=== PATIENT | male | born 1930 | race Caucasian/White ===

== ENCOUNTER 2017-12-19 11:40 | Observation (INO) | payer MEDICARE ==
[2017-12-19 12:10] LABS: #Lymphocytes 0.6 thou/uL (1.20-3.40); #Monocytes 0.2 thou/uL (0.11-0.59); #Neutrophils 5.5 thou/uL (1.40-6.50); %Eosinophils 0.2 % (0.0-10.0); %Monocytes 3.7 % (0.0-10.0); Hemoglobin 12.2 g/dL (14.0-18.0); Mean Corpuscular HGB CONC 31.7 g/dL (32.0-36.0); Mean Corpuscular Hemoglobin 32.1 pg (27.0-31.0); Mean Platelet Volume 6.8 fL (7.4-10.4); Platelet Count 145 thou/uL (130-400); RBC Distribution Width 12.4 % (11.5-14.5); Red Blood Cell (RBC) Count 3.79 mill/uL (4.70-6.10); White Blood Cell (WBC) Count 6.3 thou/uL (4.8-10.8)
[2017-12-19 12:30] LABS: ALT (SGPT) 18 U/L (8-55); AST (SGOT) 25 U/L (5-34); Albumin 3.6 g/dL (3.4-4.8); Alkaline Phosphatase 54 U/L (40-150); Anion Gap 13 mmol/L (10-20); BUN (Urea Nitrogen) 32 mg/dL (8.4-25.7); Bilirubin, Total 0.5 mg/dL (0.2-1.2); CK (CPK) 158 U/L (30-200); Calc. Creatinine Clearance 0 mL/min (70-130); Calcium 9.3 mg/dL (7.8-10.44); Carbon Dioxide 24 mmol/L (23-31); Chloride 107 mmol/L (98-107); Estimated GFR-MDRD 57; Globulin 2.8 g/dL (2.4-3.5); Glucose 97 mg/dL (83-110); Potassium 3.7 mmol/L (3.5-5.1); Protein, Total 6.4 g/dL (5.8-8.1); Sodium 140 mmol/L (136-145)
[2017-12-19 12:45] LABS: CKMB 3.1 ng/mL (0-6.6); Troponin I 0.014 ng/mL (< 0.028)
--- NOTE | 2017-12-19 13:27 | RAD ---
TWO VIEWS LEFT FOREARM: HISTORY: Fall with left forearm pain. TECHNIQUE: AP and lateral views of the left forearm are obtained. FINDINGS: No evidence of left forearm fractures, subluxations, or bony lesions seen. IMPRESSION: Normal two views left forearm. POS: [facility]
--- NOTE | 2017-12-19 13:40 | CT ---
NONCONTRAST CT CERVICAL SPINE: 12/19/2017 HISTORY: Syncopal episode with collapse. Injury after fall to ground. Unknown if the patient hit head. Sinus bradycardia. TECHNIQUE: Contiguous axial CT images are obtained through the cervical spine, from the skull base to the T1-T2 level. Sagittal and coronal reformatted images are provided. FINDINGS: There are prominent degenerative changes and pannus formation at the articulation of the odontoid and anterior arch of the C1 vertebral body. No acute fracture is visualized. There is trace anterolist hesis of C4 on C5. However, there is fusion of the right-sided facet joints at this level. No additional level of subluxation is seen, and there is no evidence of a fracture involving the cerv ical spine. There is fusion of the right-sided facet joints at the C2-C3 level. Vertebral body heights are within normal limits. Scattered facet degenerative changes are present. There are varying degrees of moderate and severe neural foraminal narrowing throughout the cervical s pine, due to the prominent facet hypertrophic changes, with the greatest degrees of neural foraminal narrowing on the left at the C3-C4 level and on the right at the C4-C5 level, with severe neural fora hillary narrowing due to the bony encroachment on the neural foramina. There is a ligamentous calcific ation seen at the right posterolateral aspect of the central canal, at the C5-C6 level, which does no t result in significant mass effect on the thecal sac. The prevertebral soft tissues are within normal limits. Vascular calcifications are seen in the carotid arteries, as well as the vertebral arteries. The bairon g apices are clear. A 9 mm, hypodense nodule is seen in the left lobe of the thyroid gland. IMPRESSION: 1. Multilevel degenerative changes in the cervical spine, without evidence of a fracture. 2. Trace anterolisthesis of C4 on C5, but there is fusion of the right-sided facet joint at this lev el. 3. Subcentimeter, nonspecific, difficult to characterize, hypodense nodule left lobe of the thyroid g land. POS: [facility]
--- NOTE | 2017-12-19 13:53 | CT ---
CT BRAIN WITHOUT CONTRAST: HISTORY: Fall, syncope, probably injury to the head. FINDINGS: Comparison is made with the exam of 12/11/14. Changes of cortical atrophy and chronic small vessel disease are again seen. The ventricular size is stable and the basilar cisterns patent. No evidence of acute infarct, hemorrhage, midline shift, or abnormal extraaxial fluid collections is seen. Vascular calcifications are noted. The bony calvari um is intact. The visualized paranasal sinuses and mastoid air cells are well aerated. IMPRESSION: No CT evidence of acute intracranial process. POS: OFF
--- NOTE | 2017-12-19 16:01 | RAD ---
PA AND LATERAL VIEWS CHEST: HISTORY: Cough, syncope. FINDINGS: There are changes of median sternotomy. The heart size is normal. A moderate-size hiatal hernia is present. The lungs are expanded without focal areas of consolidation, pneumothorax, or pleural effus ions. There are degenerative changes seen in the spine. IMPRESSION: No radiographic evidence of acute cardiopulmonary process. POS: OFF
--- NOTE | 2017-12-19 16:04 | RAD ---
TWO VIEWS LEFT HIP: DATE: 12/19/17. HISTORY: Trauma left hip. The patient woke up on the floor of the living room today and unsure how he got the re. FINDINGS: There is no fracture or dislocation involving the left hip. Minimal osteoarthritis is present. Vasc ular calcifications are seen in the iliac and femoral arteries. Surgical clips overlie the medial as pect of each thigh. Multiple calcifications overlie the pelvis which have the appearance of phleboli ths. Mild degenerative change is seen in the lower lumbar spine. IMPRESSION: 1. Minimal osteoarthritis left hip. 2. No fracture or dislocation involving the left hip. 3. Vascular calcifications. POS: [facility]
[2017-12-19 17:52] LABS: Troponin I 0.031 ng/mL (< 0.028)
[2017-12-19] MEDS ORDERED: Ondansetron ODT 4 MG TAB SL PRN (19:51)
[2017-12-19] MEDS ORDERED: Ondansetron HCl/PF 4 MG/2 ML Vial IVP PRN (19:51)
[2017-12-19] MEDS ORDERED: Acetaminophen 325 MG TAB PO PRN (19:51)
[2017-12-19 20:54] LABS: Troponin I 0.039 ng/mL (< 0.028)
[2017-12-19 22:39] VITALS: BMI 23.6
[2017-12-20] MEDS ORDERED: Dextrose 5% in Water 1,000 ML IV PRN (01:34)
[2017-12-20] MEDS ORDERED: HumaLOG 300 UNITS/3 ML VIAL SC PRN (01:34)
[2017-12-20] MEDS ORDERED: Dextrose 50% Abboject 50 ML SYRINGE SLOW IVP PRN (01:34)
[2017-12-20 02:40] LABS: Troponin I 0.043 ng/mL (< 0.028)
--- NOTE | 2017-12-20 03:56 | HP ---
PRIMARY CARE PHYSICIAN: Lior Salas MD PRESENTING COMPLAINT: Found down. HISTORY OF PRESENT ILLNESS: Freddy Yan is an 87-year-old male with a past medical history of at rial fibrillation; insulin-dependent diabetes mellitus; CAD, status post CABG, who states that al r this morning he checked his blood sugar and was 89 after which he took about 17 units of sliding sc jaison insulin. He got dressed, then states he must have passed out because may found him on the floor. He later regained consciousness and EMS was called. He was found with his heart rates in the 40s a nd was given 0.5 mg of atropine. He is unsure if he hit his head, but denies chest pain, shortness o f breath, history of seizures or bowel/bladder incontinence. He has had a similar episode in 2014 wh ere he was found to be hypoglycemic and in atrial fibrillation that were both treated. When EMS arri shaheen today, his blood glucose was in the 80s. At the emergency room, he had a dysphagia screen, which showed possible aspiration. PAST MEDICAL HISTORY: TIA; CAD, status post CABG; atrial fibrillation; insulin-dependent diabetes me llitus. PAST SURGICAL HISTORY: Right knee replacement, CABG. FAMILY HISTORY: Reviewed, not contributory. SOCIAL HISTORY: Does not smoke cigarettes, drink alcohol, or use illicit drugs. ALLERGIES: ADHESIVES. CODE STATUS: DNR. REVIEW OF SYSTEMS: Constitutional: Negative. HEENT: Negative. Cardiovascular: Negative. Respir atory: Reports occasional cough. Gastrointestinal: Negative. Genitourinary: Negative. Musculosk eletal: Negative. Skin: Negative. Neurologic: Loss of consciousness. Endocrine: Negative. Hem atological/Lymphatic: Negative. Allergy/Immunology: Negative. Psychiatric: Negative. PHYSICAL EXAMINATION: VITAL SIGNS: Pulse 70, respiratory rate 20, oxygen saturation 93% on room air, blood pressure 126/64 . CONSTITUTIONAL: Not in acute distress. Lying comfortably in bed. HEENT: Normocephalic, atraumatic. Not pale, anicteric. EOMI. PERRLA. NECK: Supple. Full range of movements. RESPIRATORY: Vesicular breath sounds bilaterally. No wheezes or rales. CARDIOVASCULAR: Regular rate and rhythm. S1, S2 only. No murmurs, rubs, or gallops. MUSCULOSKELETAL: Full range of movement of all extremities. NEUROLOGIC: Alert and well oriented. No focal deficits. SKIN: Warm, dry, well-perfused. PSYCHIATRIC: Normal mood and affect. LABORATORY DATA: Chemistry was largely unremarkable. BNP was 281. Initial troponin was 0.014 and i ncreased to 0.031. CBC showed some macrocytic anemia, but mild. IMAGING: Brain CT showed no evidence of acute intracranial process. Cervical spine CT showed multil evel degenerative changes in the cervical spine without evidence of fracture. ASSESSMENT AND PLAN: 1. Syncope. This is likely due to hypoglycemia as he reports using 70 units of short-acting insulin after he checked his blood sugar, which was 89. For tonight, we will hold all insulin that is his s cheduled home regimen. Also, holds pioglitazone and sitagliptin. He will be placed on sliding scale insulin, diabetic diet. His glucose will be checked every 2 hours. He would likely need a review o f his home regimen before discharge. 2. Atrial fibrillation, currently rate controlled. In the field, he was found to be bradycardic and was given atropine. We will hold metformin and monitor on telemetry. 3. Insulin-dependent diabetes mellitus. For plan, see problem #1. 4. Coronary artery disease, status post coronary artery bypass graft, stable, chest pain free. We w ill resume home regimen of aspirin, atorvastatin, losartan. The patient's metoprolol has been held d ue to reported bradycardia in the field. 5. Elevated troponin could be from demand ischemia. We will trend and monitor.
[2017-12-20] MEDS ORDERED: Mag-Al 1200 mg/1200 mg/30 ML UDCUP PO PRN (07:04)
[2017-12-20] MEDS ORDERED: Ondansetron HCl/PF 4 MG/2 ML Vial IVP PRN (07:04)
[2017-12-20] MEDS ORDERED: Loperamide HCl 2 MG CAP PO PRN (07:04)
[2017-12-20] MEDS ORDERED: Milk Of Magnesia 30 ML UDCUP PO PRN (07:04)
[2017-12-20] MEDS ORDERED: Ondansetron ODT 4 MG TAB PO PRN (07:04)
[2017-12-20] MEDS ORDERED: HYDROcodone/Acetaminophen 5/325 mg Tablet PO PRN (07:04)
[2017-12-20] MEDS ORDERED: Senokot 8.6 MG TAB PO PRN (07:04)
[2017-12-20] MEDS ORDERED: Acetaminophen 325 MG TAB PO PRN (07:04)
[2017-12-20] MEDS ORDERED: Temazepam 15 MG CAP PO PRN (07:04)
[2017-12-20] MEDS ORDERED: Sodium Chloride 0.65% Nasal 44 ML BOT EA NARE PRN (07:04)
[2017-12-20] MEDS ORDERED: Eucerin (Mineral Oil/Petrolatum,White) 30 gm Jar TOP PRN (07:04)
[2017-12-20] MEDS ORDERED: Diabetic Tussin 200 MG/10 ML UDCUP PO PRN (07:04)
[2017-12-20] MEDS ORDERED: hydrALAZINE 20 MG/ML VIAL SLOW IVP PRN (07:04)
[2017-12-20] MEDS ORDERED: Artificial Tears 18 DROP/0.9 ML EA EYE PRN (07:04)
[2017-12-20] MEDS ORDERED: Chloraseptic Spray 180 ml Bottle PO PRN (07:04)
[2017-12-20 08:40] LABS: Troponin I 0.044 ng/mL (< 0.028)
[2017-12-20] MEDS ORDERED: Cyanocobalamin (Vitamin B-12) 1,000 MCG TAB PO SCH (09:00)
[2017-12-20] MEDS ORDERED: Loratadine 10 MG TAB PO SCH (09:00)
[2017-12-20] MEDS ORDERED: Metoprolol Tartrate 50 MG TAB PO SCH (09:00)
[2017-12-20] MEDS ORDERED: Folic Acid 1 MG TAB PO SCH (09:00)
[2017-12-20] MEDS ORDERED: Lactinex Tablet PO SCH (09:00)
[2017-12-20] MEDS ORDERED: Losartan 25 MG TAB PO SCH (09:00)
[2017-12-20] MEDS ORDERED: DESLORATADINE 5 MG PO SCH (09:00)
[2017-12-20] MEDS ORDERED: Aspirin 81 mg Enteric Coated Tablet PO SCH (09:00)
[2017-12-20] MEDS ORDERED: Tamsulosin HCl 0.4 MG CAP PO SCH (09:00)
--- NOTE | 2017-12-20 09:25 | PDOC.PN ---
- Subjective Encounter Start Date: 12/20/17 Encounter Start Time: 07:30 -: old records requested/rev Patient seen and examined. No new complaints. No overnight events - Objective Resuscitation Status: Resuscitation Status DNR:Do Not Resuscitate MAR Reviewed: Yes Vital Signs & Weight: Vital Signs (12 hours) Temp Pulse Resp BP BP BP BP 12/20/17 07:45 97.1 F L 72 16 128/66 144/65 H 138/63 12/20/17 04:35 101/53 L 97/57 L 106/55 L 12/19/17 23:40 74 18 106/54 L Pulse Ox 12/20/17 07:45 99 12/20/17 04:35 12/19/17 23:40 100 Weight Weight 164 lb 3.2 oz Result Diagrams: 12/19/17 12:00 12/19/17 12:00 Additional Labs: Accuchecks 12/20/17 05:46 POC Glucose 102 EKG Reviewed by me: Yes (nsr) Phys Exam - Physical Examination Constitutional: NAD HEENT: PERRLA, moist MMs, sclera anicteric Neck: no JVD, supple Respiratory: no wheezing, no rales, no rhonchi Cardiovascular: RRR, no significant murmur, no rub Gastrointestinal: soft, non-tender, no distention, positive bowel sounds Musculoskeletal: no edema, pulses present Neurological: non-focal, normal sensation, moves all 4 limbs Psychiatric: normal affect, A&O x 3 Skin: no rash, normal turgor Dx/Plan (1) Elevated troponin Code(s): R74.8 - ABNORMAL LEVELS OF OTHER SERUM ENZYMES Status: Acute (2) Syncope Code(s): R55 - SYNCOPE AND COLLAPSE Status: Acute (3) BPH (benign prostatic hyperplasia) Code(s): N40.0 - BENIGN PROSTATIC HYPERPLASIA WITHOUT LOWER URINRY TRACT SYMP Status: Chronic (4) CAD (coronary artery disease) Code(s): I25.10 - ATHSCL HEART DISEASE OF [place] CORONARY ARTERY W/O ANG PCTRS Status: Chronic (5) DJD (degenerative joint disease) of cervical spine Code(s): M47.812 - SPONDYLOSIS W/O MYELOPATHY OR RADICULOPATHY, CERVICAL REGION Status: Chronic (6) Diabetes type 2, controlled Code(s): E11.9 - TYPE 2 DIABETES MELLITUS WITHOUT COMPLICATIONS Status: Chronic (7) Dyslipidemia Code(s): E78.5 - HYPERLIPIDEMIA, UNSPECIFIED Status: Chronic (8) GERD (gastroesophageal reflux disease) Code(s): K21.9 - GASTRO-ESOPHAGEAL REFLUX DISEASE WITHOUT ESOPHAGITIS Status: Chronic (9) Macrocytic anemia Code(s): D53.9 - NUTRITIONAL ANEMIA, UNSPECIFIED Status: Chronic (10) Moderate mitral regurgitation by prior echocardiography Code(s): I34.0 - NONRHEUMATIC MITRAL (VALVE) INSUFFICIENCY Status: Chronic (11) Moderate tricuspid regurgitation by prior echocardiogram Code(s): I07.1 - RHEUMATIC TRICUSPID INSUFFICIENCY Status: Chronic (12) Osteoarthritis Code(s): M19.90 - UNSPECIFIED OSTEOARTHRITIS, UNSPECIFIED SITE Status: Chronic (13) Paroxysmal atrial fibrillation Code(s): I48.0 - PAROXYSMAL ATRIAL FIBRILLATION Status: Chronic - Plan cont current plan of care, plan discussed w/ family * will reduce metoprolol 12.5 mg po bid * DC digoxin * reduce losartan 25 mg po daily * DC actos and Januvia * Echo today * later today will discharge * updated plan to son and pt * medication reviewed as below * symptomatic treatment.. Review of Systems - Review of Systems Eyes: negative: Pain, Vision Change, Conjunctivae Inflammation, Eyelid Inflammation, Redness, Other ENT: negative: Ear Pain, Ear Discharge, Nose Pain, Nose Discharge, Nose Congestion, Mouth Pain, Mouth Swelling, Throat Pain, Throat Swelling, Other Respiratory: negative: Cough, Dry, Shortness of Breath, Hemoptysis, SOB with Excertion, Pleuritic Pain, Sputum, Wheezing Cardiovascular: negative: chest pain, palpitations, orthopnea, paroxysmal nocturnal dyspnea, edema, light headedness, other Gastrointestinal: negative: Nausea, Vomiting, Abdominal Pain, Diarrhea, Constipation, Melena, Hematochezia, Other Genitourinary: negative: Dysuria, Frequency, Incontinence, Hematuria, Retention , Other Musculoskeletal: negative: Neck Pain, Shoulder Pain, Arm Pain, Back Pain, Hand Pain, Leg Pain, Foot Pain, Other Skin: negative: Rash, Lesions, Adams, Bruising, Other - Medications/Allergies Allergies/Adverse Reactions: Allergies Allergy/AdvReac Type Severity Reaction Status Date / Time adhesive tape Allergy Uncoded 12/19/17 23:29 Medications: Current Medications Acetaminophen (Tylenol) 650 mg PO Q4H PRN PRN Reason: Headache/Fever or Mild Pain Hydrocodone Bitart/Acetaminophen ([place] 5/325) 1 tab PO Q4H PRN PRN Reason: Moderate Pain (4-6) Acidophilus (Floranex) 1 tab PO DAILY [facility] Last Admin: 12/20/17 08:36 Dose: 1 tab Al Hydroxide/Mg Hydroxide (Maalox) 15 ml PO Q4H PRN PRN Reason: Heartburn or Indigestion Artificial Tears (Tears Naturale) 0 drop EA EYE PRN PRN PRN Reason: Dry Eyes Aspirin (Ecotrin) 81 mg PO QAM [facility] Last Admin: 12/20/17 08:27 Dose: 81 mg Atorvastatin Calcium (Lipitor) 40 mg PO [facility] Cyanocobalamin (Vitamin B-12) 1,000 mcg PO DAILY [facility] Last Admin: 12/20/17 08:30 Dose: 1,000 mcg Dextrose/Water (Dextrose 50%) 25 gm SLOW IVP PRN PRN PRN Reason: Hypoglycemia Folic Acid (Folvite) 1 mg PO DAILY [facility] Last Admin: 12/20/17 08:31 Dose: 1 mg Glucagon (Glucagon) 1 mg IM PRN PRN PRN Reason: Hypoglycemia Guaifenesin (Robitussin Sf) 200 mg PO Q4H PRN PRN Reason: Cough Hydralazine HCl (Apresoline) 10 mg SLOW IVP Q4H PRN PRN Reason: Systolic BP > 180 Dextrose/Water (D5w) 1,000 mls @ 0 mls/hr IV .Q0M PRN; As Directed PRN Reason: Hypoglycemia Insulin Human Lispro (Humalog) 0 units SC .MILD SLIDING SCALE PRN PRN Reason: Mild Correctional Scale Loperamide HCl (Imodium) 2 mg PO PRN PRN PRN Reason: Diarrhea/Loose Stools Loratadine (Claritin) 10 mg PO DAILY [facility] Last Admin: 12/20/17 08:30 Dose: 10 mg Magnesium Hydroxide (Milk Of Magnesium) 30 ml PO DAILYPRN PRN PRN Reason: Constipation Metoprolol Tartrate (Lopressor) 50 mg PO QAM [facility] Last Admin: 12/20/17 08:30 Dose: 50 mg Mineral Oil/White Petrolatum (Eucerin Cream) 0 gm TOP BIDPRN PRN PRN Reason: Dry Skin Ondansetron HCl (Zofran Odt) 4 mg PO Q6H PRN PRN Reason: Nausea/Vomiting Ondansetron HCl (Zofran) 4 mg IVP Q6H PRN PRN Reason: Nausea/Vomiting Pantoprazole Sodium (Protonix) 40 mg PO DAILY [facility] Last Admin: 12/20/17 08:28 Dose: 40 mg Phenol (Chloraseptic Proctor 180 Ml Bot) 0 ml PO PRN PRN PRN Reason: Sore Throat Senna (Senokot) 2 tab PO HSPRN PRN PRN Reason: Constipation Sodium Chloride ([place] Nasal Proctor 0.65%) 0 ml EA NARE QIDPRN PRN PRN Reason: Nasal Congestion Sodium Chloride (Flush - Normal Saline) 10 ml IVF Q12HR [facility] Last Admin: 12/20/17 08:37 Dose: 10 ml Sodium Chloride (Flush - Normal Saline) 10 ml IVF PRN PRN PRN Reason: Saline Flush Tamsulosin HCl (Flomax) 0.4 mg PO DAILY [facility] Last Admin: 12/20/17 08:27 Dose: 0.4 mg Temazepam (Restoril) 15 mg PO HSPRN PRN PRN Reason: Insomnia
--- NOTE | 2017-12-20 10:57 | DIS ---
DATE OF ADMISSION: 12/19/2017 DATE OF DISCHARGE: 12/20/2017 PRIMARY CARE PHYSICIAN: Dr. Lior aSlas. DISCHARGE DISPOSITION: Home. PRIMARY DISCHARGE DIAGNOSES: Syncope, likely due to multifactorial etiology. Elevated troponin due to demand ischemia. SECONDARY DISCHARGE DIAGNOSES: Paroxysmal atrial fibrillation, osteoarthritis of hip, moderate gwen l and tricuspid regurgitation, macrocytic anemia, gastroesophageal reflux disease, dyslipidemia, dege nerative joint disease of the spine, diabetes type 2, coronary artery disease, benign enlargement of prostate. PRIMARY PROCEDURE/OPERATION: None. RADIOLOGICAL INVESTIGATION: CT brain was negative for any acute intracranial process. Forearm x-ray is negative for any fracture or dislocation. CT cervical spine is negative for any fracture or disl ocation, but it showed degenerative spine disease. Chest x-ray is normal. Hip x-ray is unremarkable . SIGNIFICANT LABORATORY DATA: WBC 6.3, hemoglobin 12.2, platelet 145, MCV 101. Sodium 140, potassium 3.7, chloride 107, BUN 32, creatinine 1.21, glucose 97, calcium 9.3. LFTs normal. Troponin 0.031. BNP 281.2. DISCHARGE MEDICATIONS: Aspirin 81 mg p.o. daily, Lipitor 40 mg p.o. daily, vitamin B12 1000 mcg p.o. daily, Claritin 5 mg p.o. daily p.r.n., folic acid 1 mg p.o. daily, NovoLog insulin as per sliding s vish per protocol, Lantus insulin 10 to 14 units subcu daily, Probiotic 1 capsule p.o. daily, omepraz ole 40 mg p.o. daily, Flomax 0.4 mg p.o. daily. CONTRAINDICATIONS: None. CODE STATUS: DNR. INPATIENT CONSULTANTS: None. ALLERGIES: ADHESIVE TAPE. DISCHARGE PLAN: Post hospital, the patient will follow up with primary care physician in 1 week. HOSPITAL COURSE: An 87-year-old male who was admitted by Dr. Smith, please see his H&P for furthe r details. There was question of syncope with him and his blood sugar was low at home and he took in sulin and after that he passed out. We are suspecting orthostatic hypotension as well and that is wh y this patient was observed on telemetry floor. He had indeterminate troponin, though he did not hav e any chest pain. We are suspecting elevated troponin due to demand ischemia. He has microcytic ane arin that is why we are starting folic acid and vitamin B12 therapy. This patient was bradycardic and hypotensive when he arrived to the ER, there was also contributing to his syncopal episode. During this admission, we discontinued Actos, and Januvia and we advised him to continue Humalog insulin and Lantus insulin as per home dosage and monitored his blood sugar at home and follow up with primary c are physician for further adjustment of therapy. We are reducing metoprolol to 12.5 mg twice daily a nd losartan from 100 to 25 mg p.o. daily upon discharge. This patient given instructions to hold blo od pressure medication if blood pressure is less than 120 and he is advised to keep a diary of blood pressure, so he can follow up with the primary care physician for adjustment of medication. We are obtaining an echocardiography before discharge as well and he will follow up with primary care physician. Patient is seen and examined at bedside today. Plan of care discussed with the son. Pl ease see my progress note from today for further details.
[2017-12-20 16:58] VITALS: BP 138/63; TEMP 98
[2017-12-20] MEDS ORDERED: Atorvastatin Calcium 40 MG TAB PO SCH (21:00)
--- NOTE | 2017-12-24 13:23 | EKG ---
Test Reason : Blood Pressure : / mmHG Vent. Rate : 069 BPM Atrial Rate : 069 BPM P-R Int : 220 ms QRS Dur : 118 ms QT Int : 462 ms P-R-T Axes : 007 -24 010 degrees QTc Int : 495 ms Sinus rhythm with 1st degree A-V block Incomplete left bundle branch block Prolonged QT Abnormal ECG Confirmed by PRAFUL BLACKMAN ([id number]), visual effects editor GIOVANNI SANCHEZ ([id number]) on 12/24/2017 1:22:50 PM Referred By: Confirmed By:PRAFUL BLACKMAN
== END 2017-12-20 16:57 | disposition home or self-care (01) ==
LOC: ERS 11:40 → 2SW 17:21
PROVIDERS: ADMIT Internal Medicine; ATTEND Internal Medicine
DX: R55 Syncope and collapse (principal); I24.8 Other forms of acute ischemic heart disease; I48.0 Paroxysmal atrial fibrillation; M16.10 Unilateral primary osteoarthritis, unspecified hip; D53.9 Nutritional anemia, unspecified; K21.9 Gastro-esophageal reflux disease without esophagitis; E78.5 Hyperlipidemia, unspecified; E11.9 Type 2 diabetes mellitus without complications; I25.10 Atherosclerotic heart disease of native coronary artery without angina pectoris; N40.0 Benign prostatic hyperplasia without lower urinary tract symptoms; M47.9 Spondylosis, unspecified; R74.8 Abnormal levels of other serum enzymes; I34.0 Nonrheumatic mitral (valve) insufficiency; I07.1 Rheumatic tricuspid insufficiency; Z66 Do not resuscitate; Z86.73 Personal history of transient ischemic attack (TIA), and cerebral infarction without residual deficits; Z91.81 History of falling; Z91.048 Other nonmedicinal substance allergy status; Z79.82 Long term (current) use of aspirin; Z79.4 Long term (current) use of insulin; Z95.1 Presence of aortocoronary bypass graft; Z96.651 Presence of right artificial knee joint; Z98.1 Arthrodesis status; Z79.899 Other long term (current) drug therapy; W19.XXXA Unspecified fall, initial encounter
CPT/HCPCS: 70450; 71046; 72125; 73090; 73502; 80053; 82550 ×2; 82553; 82962 ×2; 83880; 84484 ×4; 85025; 93005; 93306; 94760; 99285; G0378; 36415; 36416; A4216

== ENCOUNTER 2018-02-20 08:03 | Outpatient (CLI) | payer MEDICARE ==
--- NOTE | 2018-02-20 10:15 | ULT ---
THYROID ULTRASOUND: INDICATION: Thyroid nodule. COMPARISON: None. TECHNIQUE: Singh scale color Doppler images were obtained of the thyroid gland. FINDINGS: The right thyroid lobe measures 3.6 x 1.4 x 1.2 cm. There are 2 solid hypoechoic nodules involving t he superior pole of the right thyroid gland. The largest is seen within the more proximal aspect of the superior pole of the right thyroid gland measuring 6 x 3 x 4 mm. Additional hypoechoic solid nod ule is seen within the right thyroid superior pole measuring 5 x 3.4 mm. The left thyroid lobe measures 3.6 x 1.2 x 1.1 cm. There is a complex mixed echogenicity solid nodul e involving the superior pole of the left thyroid gland measuring 1.1 x 0.9 x 0.9 cm. A bilobed hypo echoic solid-appearing nodule is seen within the mid aspect of the left thyroid gland measuring 7 x 3 x 6 mm. The thyroid isthmus measures 0.5 cm. Diffusely, the background thyroid tissue is heterogeneous in appearance. No lymphadenopathy is demonstrated. IMPRESSION: 1. Small hypoechoic nodules involving the superior pole of the right thyroid gland are consistent wi th TIRADS 2 lesion and are not suspicious. No followup is recommended. 2. There are solid mixed hyperechoic to isoechoic nodule involving the superior pole left thyroid gl and is consistent with TIRADS 3 lesion. No followup is recommended due to its size. 3. Bi-lobed hypoechoic nodule within the left mid thyroid gland is consistent with a TIRADS 3 lesion . Due to its size, no followup is recommended. POS: [facility]
== END 2018-02-20 08:04 | disposition home or self-care (01) ==
LOC: SCSULT 08:03
PROVIDERS: ATTEND Family Medicine
DX: E04.1 Nontoxic single thyroid nodule (principal); E04.2 Nontoxic multinodular goiter
CPT/HCPCS: 76536

== ENCOUNTER 2018-04-19 09:58 | Inpatient (IN) | payer MEDICARE ==
[2018-04-19 11:04] LABS: Amphetamine Not Detected (NotDetected); Barbiturates Screen Not Detected (NotDetected); Benzodiazepine Screen Not Detected (NotDetected); Cocaine Metabolite Screen Not Detected (NotDetected); Medtox Control Line Valid? VALID (VALID); Medtox Reader # READER 4; Methadone Not Detected (NotDetected); Methamphetamine Not Detected (NotDetected); Opiate Screen Not Detected (NotDetected); Oxycodone Screen Not Detected (NotDetected); Phencyclidine (PCP) Not Detected (NotDetected); THC/Cannabinoid Screen Not Detected (NotDetected); Tricyclic Screen Not Detected (NotDetected)
[2018-04-19 11:07] LABS: Acetaminophen Less than 6.0 mcg/mL (10.0-30.0); Alcohol Less than 10 mg/dL (Less than 10); CK (CPK) 172 U/L (30-200); Lipase 17 U/L (8-78); Salicylate Less than 8.0 mg/dL (15.0-30.0)
[2018-04-19 11:08] LABS: ALT (SGPT) 11 U/L (8-55); AST (SGOT) 26 U/L (5-34); Albumin 3.5 g/dL (3.4-4.8); Alkaline Phosphatase 52 U/L (40-150); Anion Gap 16 mmol/L (10-20); BUN (Urea Nitrogen) 44 mg/dL (8.4-25.7); Bilirubin, Total 0.6 mg/dL (0.2-1.2); Calc. Creatinine Clearance 0 mL/min (70-130); Carbon Dioxide 20 mmol/L (23-31); Chloride 107 mmol/L (98-107); Estimated GFR-MDRD 35; Glucose 241 mg/dL (83-110); Potassium 4.3 mmol/L (3.5-5.1); Protein, Total 6.5 g/dL (5.8-8.1); Sodium 139 mmol/L (136-145)
[2018-04-19 11:09] LABS: Base Excess-Venous -5.6 mmol/L (0 (+/- 2.5)); Bicarbonate (HCO3v) 20.4 mmol/L (1.0-85.0); CO2 Tension (PvCO2) 40.8 mmHg (41.0-51.0); Calcium, Ionized 1.18 mmol/L (1.12-1.32); Hemoglobin - Calc 10.8 g/dL (12.0-18.0); O2 Tension (PvO2) 26.2 mmHg (35.0-45.0); Potassium 4.2 mmol/L (3.4-4.7); T. Carbon Dioxide 21.6 mmol/L (1.0-85.0); pH (Venous) 7.306 (7.35-7.45); vO2 Saturation-calc 42.6 % (94-98)
[2018-04-19 11:11] LABS: Bilirubin Negative (Negative); Blood, Urine Negative (Negative); Clarity CLEAR (Clear); Glucose, Urine (Dipstick) Negative (Negative); Leukocyte Negative (Negative); Nitrite Negative (Negative); Protein, Urine (Dipstick) 300 mg/dL (Neg-Trace); Specific Gravity, Urine 1.022 (1.002-1.036); Urobilinogen 0.2 mg/dL (0.2-1.0)
[2018-04-19 11:13] LABS: Bacteria/HPF None Seen HPF (None Seen); Hyaline Casts/LPF 0-3 HYALINE CAST LPF (0-3 Hyaline); Pathc Cast-AUWi Flag 0.29 (0-2.49); Squamous Epithelial 0-3 HPF (0-3); WBC/HPF 0-3 HPF (0-3)
--- NOTE | 2018-04-19 11:25 | CT ---
NONCONTRAST CT HEAD: 04/19/2018 HISTORY: Altered mental status. EMS reported hypotension upon arrival. COMPARISON: 12/19/2017 and 12/11/2014 FINDINGS: Again noted is evidence of chronic small vessel ischemic changes and cerebral as well as cerebellar v olume loss. There is no evidence of an acute infarction, hemorrhage, mass effect, or midline shift. Ventricular system is mildly dilated but stable from the prior study and likely related to prominent central cerebral atrophy. Again noted are nonspecific but stable multiple calcifications in the titi s. There is no evidence of an acute infarction, hemorrhage, mass effect, or midline shift. The visualized paranasal sinuses and mastoid air cells are clear. Prominent vascular calcifications are again seen in the carotid siphons and in the distal vertebral arteries. There has been no interv al change from the prior studies. IMPRESSION: Stable CT scan of the head without evidence of an acute intracranial abnormality demonstrated. POS: [facility]
[2018-04-19 11:31] LABS: #Lymphocytes 0.3 thou/uL (1.20-3.40); #Monocytes 0.3 thou/uL (0.11-0.59); #Neutrophils 5.7 thou/uL (1.40-6.50); %Basophils 0.3 % (0.0-1.0); %Eosinophils 0.1 % (0.0-10.0); %Lymphocytes 4.1 % (21.0-51.0); %Monocytes 4.7 % (0.0-10.0); %Neutrophils 90.8 % (42.0-75.0); Hemoglobin 10.9 g/dL (14.0-18.0); Mean Corpuscular HGB CONC 33.8 g/dL (32.0-36.0); Mean Corpuscular Hemoglobin 32.1 pg (27.0-31.0); Mean Corpuscular Volume 94.9 fL (78.0-98.0); Mean Platelet Volume 8.3 fL (7.4-10.4); Platelet Count 130 thou/uL (130-400); RBC Distribution Width 13.2 % (11.5-14.5); Red Blood Cell (RBC) Count 3.41 mill/uL (4.70-6.10); White Blood Cell (WBC) Count 6.3 thou/uL (4.8-10.8)
--- NOTE | 2018-04-19 11:31 | RAD ---
PORTABLE AP CHEST X-RAY: 04/19/2018 HISTORY: Altered mental status. COMPARISON: 12/19/2017 FINDINGS: Post surgical changes related to median sternotomy are again noted. The cardiac silhouette is magnif ied by projection. The pulmonary vasculature is within normal limits. The lungs are clear. Calcifi cations overly the upper lung zones bilaterally, which are probably related to vascular type calcific ations. A hiatal hernia in the retrocardiac region is present with adjacent atelectasis at the left lung base. No fracture is seen. Vascular calcifications are seen in the thoracic aorta. No other interval issa ge. IMPRESSION: 1. No acute cardiopulmonary process. 2. Hiatal hernia with atelectasis, left lung base. POS: [facility]
[2018-04-19 11:49] LABS: CKMB 14.5 ng/mL (0-6.6); Troponin I 3.961 ng/mL (< 0.028)
[2018-04-19] MEDS ORDERED: Enoxaparin Sodium 80 MG/0.8 ML SYRINGE SC SCH (12:15)
[2018-04-19] MEDS ORDERED: Aspirin 300 MG Suppository ONE (12:50)
[2018-04-19] MEDS ORDERED: Enoxaparin Sodium 80 MG/0.8 ML SYRINGE ONE (13:44)
[2018-04-19 13:56] LABS: Critical Call Chem Troponin I RESULT DECREASING; Troponin I 3.722 ng/mL (< 0.028)
[2018-04-19] MEDS ORDERED: Ondansetron ODT 4 MG TAB PO PRN (15:26)
[2018-04-19] MEDS ORDERED: Dextrose 50% Abboject 50 ML SYRINGE SLOW IVP PRN ×2 (15:26)
[2018-04-19] MEDS ORDERED: Bisacodyl 10 MG SUPP PR PRN (15:26)
[2018-04-19] MEDS ORDERED: HumaLOG 300 UNITS/3 ML VIAL SC PRN (15:26)
[2018-04-19] MEDS ORDERED: Dextrose 5% in Water 1,000 ML IV PRN (15:26)
[2018-04-19] MEDS ORDERED: Bisacodyl 5 MG TAB PO PRN (15:26)
[2018-04-19] MEDS ORDERED: Acetaminophen 650 MG Suppository PR PRN (15:26)
[2018-04-19] MEDS ORDERED: Ondansetron HCl/PF 4 MG/2 ML Vial IVP PRN (15:26)
[2018-04-19] MEDS ORDERED: Nitroglycerin 0.4 MG TAB (25 Tab Bottle) PO PRN (15:26)
[2018-04-19 17:29] LABS: Troponin I 4.139 ng/mL (< 0.028)
[2018-04-19] MEDS: Sodium Chloride 0.9% 1,000 ML IV SCH ×2 (18:30→23:06)
[2018-04-19] MEDS: Docusate 100 MG CAP PO SCH (21:02)
[2018-04-19] MEDS: Enoxaparin Sodium 80 MG/0.8 ML SYRINGE SC SCH (21:02)
--- NOTE | 2018-04-20 01:15 | HP ---
PRIMARY CARE PHYSICIAN: Lior Salas M.D. CHIEF COMPLAINT: Altered mental status. HISTORY OF PRESENT ILLNESS: This is an 87-year-old white male who lives at assisted living usually a mbulates and talks well. 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 He got his blood work don e, but was unable to urinate for them at the lab, he brought a bottle home to urinate in, his son yareli pped him off at his assisted living facility where he apparently checked his blood sugar at that time he had in his log. His family did not hear from me again and the next morning when they called him, he did not respond, so they went over to the assisted living found and sitting in the same clothes i n his chair. He was confused, unable to speak, had not gotten up and had stool and self overnight, s o he was brought into the emergency room. In the ER, he was noted to be dehydrated and was not orien daily and was somnolent and mildly hypotensive, blood pressure in the 90s systolic. The patient was gi thomas IV fluids. His labs were checked and noted to have an elevated troponin, there was a nonspecific EKG. PAST MEDICAL HISTORY: All history taken from family and from the chart as the patient is not able to communicate at this time. 1. Transient ischemic attack, stroke in the distant past which left him with dysphagia. 2. Coronary artery disease status post coronary artery bypass graft. 3. Atrial fibrillation. 4. Insulin-dependent diabetes mellitus. 5. Dyslipidemia. 6. Significant peripheral vascular disease in his lower extremities. PAST SURGICAL HISTORY: 1. Esophageal dilation. 2. Coronary artery bypass graft. 3. Right total knee replacement x2. SOCIAL HISTORY: The patient lives in assisted living. He is . No history of tobacco or alco hol use. ALLERGIES: ADHESIVE TAPE. CURRENT MEDICATIONS: 1. Loratadine 5 mg daily. 2. Losartan 100 mg daily. 3. Atorvastatin 40 mg daily. 4. Omeprazole 40 mg daily. 5. Lantus 10-20 units daily. 6. NovoLog sliding scale. 7. Aspirin 81 mg daily. 8. Januvia 100 mg daily. 9. Flomax 0.4 mg daily. FAMILY HISTORY: Mother and father had diabetes. No family history of coronary artery disease. REVIEW OF SYSTEMS: Unable to obtain secondary to patient's mental status and family does not know an y other symptoms besides the HPI. PHYSICAL EXAMINATION: VITAL SIGNS: Blood pressure 104/54, pulse 86, respirations 20, temperature 99.5, O2 sat 100% on room air. GENERAL: This is a well-developed elderly white male in no acute distress. HEENT: Pupils equal, round, and reactive to light. Oropharynx dry with poor movement of the tongue. NECK: Supple, no lymphadenopathy, no thyroid nodules or enlargement, no JVD. HEART: Regular rate and rhythm, no murmurs, rubs, or gallops. LUNGS: Clear to auscultation bilaterally, no wheezes, crackles, or rhonchi. ABDOMEN: Soft, nontender to palpation, normoactive bowel sounds, no hepatosplenomegaly or other mass es. EXTREMITIES: No clubbing, cyanosis, or edema. He does have weak lower extremity peripheral pulses. SKIN: No rashes or lesions noted. NEUROLOGIC: The patient is now alert. He can say his name, according to the [id number] was amarjit e familiar with him. It was very hard to understand his answer to my question. Otherwise, not able to speak with any coherence he is able to say thank you with fairly understandable. He does not have any facial droop. His strength is 5/5 in all 4 extremities. He has intact reflexes and strong. LABORATORY DATA: White blood cell count 6.3, hemoglobin 10.9, hematocrit 32.4, MCV normal, platelet count normal. A VBG with a pH of 7.3. Complete metabolic panel notable for carbon dioxide of 20, no rmal anion gap, BUN of 44, creatinine 1.84, his most recent was 1.2 before that. Glucose of 241. Th e rest of the complete metabolic panel was normal. Creatine kinase normal. Troponin was elevated at 3.722. TSH normal. Urinalysis negative for infection. Urine drug screen negative. He did have so me beta hydroxybutyrate 2.82 in his blood. Chest x-ray: I did review the chest x-ray done in the em ergency room along with the radiologist's report. No acute intrathoracic or cardiopulmonary disease. CT of the brain showed no evidence of acute intracranial abnormality. EKG showed normal sinus rhyt hm with first degree AV block. No ST segment changes. ASSESSMENT: 1. Acute encephalopathy, likely secondary to dehydration and acute myocardial infarction improving w ith IV hydration. 2. Acute non-ST elevation myocardial infarction. The patient has gotten Lovenox and aspirin already . We will continue Lovenox in the hospital along with aspirin and we will consult Dr. Singer, Cardiolo gy. I suspect we will do medical management only in this patient given his age. 3. Acute renal failure likely secondary to dehydration. We will give IV fluids with normal saline 1 00 mL per an hour and monitor closely. 4. Diabetes mellitus type 2, insulin-dependent. We will resume patient's insulin at half dose until he can take oral and we will put him on a low insulin sliding scale and fingerstick blood sugars q.a .c. and at bedtime. 5. Gastrointestinal prophylaxis. We will continue patient's omeprazole. 6. Deep venous thrombosis prophylaxis. The patient is now on Lovenox. 7. Code status. I did discuss this with the patient and his family, his son and [id number] who were in the room; however, his medical power of employee benefits attorney and they stated he is a DNR. The son's nam e is Daniel Hayes, his is Diandra Hayes.
--- NOTE | 2018-04-20 01:28 | CON ---
DATE OF ADMISSION: 04/19/2018 DATE OF CONSULTATION: 04/19/2018 INDICATION FOR CONSULTATION: Abnormal cardiac enzymes and the patient with a history of known guy ry artery disease. HISTORY OF PRESENT ILLNESS: This is a very pleasant, but unfortunate 87-year-old gentleman was seen by his son yesterday afternoon. He took him for blood work. He was having some problems walking, ev entually then to take a wheelchair, take him to get a blood work done then he taken to home and the s on said that he was going to eat a sandwich, but then today when the son visited apparently he was st ill sitting in the same chair when he had been discharged and was apparently had not changed his clot hes, a TV was still on and obviously the patient did not seem to have eaten or had done anything and he did have some mental status changes. He was then brought to the emergency room and [facility], he was somewhat hypotensive when he arrived here. Previously, the patient has not unger d any significant dementia. He had a CT scan performed which was unremarkable. He also had a chest x-ray which did not show any acute changes. His cardiac enzymes show evidence of probable non-ST seg ment elevation myocardial infarction with troponin I originally at 3.96 is now decreased down to 3.72 . He also has an MB of 14.5. He does have a history of known coronary artery disease and underwent bypass surgery in the past, I believe about 14 years ago in [place]. He has also had an ablation of atrial flutter in 2015 here at [facility]. 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 His last echocardiogram was in November of this year which showed ejection fraction of 50%-55% wi th moderate left atrial dilatation, there was mild to moderate pulmonary valve regurgitation, moderat e to severe tricuspid and mitral valve regurgitation. His EKG shows sinus rhythm in the past. At th is time, he still continues to have sinus rhythm but with a first degree AV heart block. He denies a ny significant complaints to self, but he is somewhat slow to answer the questions and he will tell y ou that he does not know some of the answers. He is somewhat lethargic and appears to be very fatigu ed, but at this time he is not having any acute complaints. PAST MEDICAL HISTORY: Significant for the coronary artery disease, bypass surgery, history of hyperc holesterolemia. He has had some CVA in the past. He has had a history [facility] He has gastroesophageal reflux disease. He had esophageal stricture. I believe he has had s ome dilatations in the past of the esophagus. He has had a total right knee replacement x2. He has had a tonsillectomy, cataract surgery, recent resection of the prostate, and atrial flutter ablation. ALLERGIES: He is allergic to ADHESIVE TAPE. FAMILY HISTORY: Noncontributory at his age. SOCIAL HISTORY: He lives in an assisted living or independent living. There is no history of alcoho l use. No history of tobacco abuse. REVIEW OF SYSTEMS: Essentially, there are no new findings per the family, the patient is unable to g kelvin any review of systems very clearly, this obviously is not quite sure of his self and still contin ues to have some mental status changes. MEDICATIONS: Include atorvastatin, Clarinex, Tylenol, Lantus insulin, aspirin, omeprazole, tamsulosi n, Januvia, pioglitazone, NovoLog insulin, ciclopirox topical cream and losartan 50 mg q. day. PHYSICAL EXAMINATION: GENERAL: Reveals an elderly gentleman who is in no acute distress at this time. VITAL SIGNS: Blood pressure is 113/50, heart rate is in the 80s, has what appears to be sinus rhythm with first degree heart block. He is afebrile. HEENT: Shows the head to be normocephalic and atraumatic. He does have bilateral soft carotid bruit s. CHEST: He has a soft bibasilar rhonchi or rales, when he coughs he has some coarse rhonchi. CARDIOVASCULAR: Reveals a regular rate and rhythm. He has systolic murmur of the aortic area. He a lso has a very soft systolic murmur at the lower sternal border. ABDOMEN: Soft and nontender. Positive bowel sounds are present. EXTREMITIES: Show no clubbing or cyanosis. I cannot palpate pedal pulses. Popliteal pulses are angely y difficult to palpate. NEUROLOGIC: The patient appears to be very lethargic, not in his normal usual state of mind. He use s more active and more alert in this. SKIN: Warm and dry. LABORATORY AND X-RAY FINDINGS: Shows BUN of 44 with a creatinine of 1.84, potassium is 4.3. Troponi n I is noted for above with 3.96 is now decreased down to 3.72 with a MB of 14. His glucose was 241, WBC was only 6.3 with a hemoglobin of 10.9. Previously, his hemoglobin back in November of this yea r was 12.2 and in 2014 was 13.3. The patient continues to be confused. IMPRESSION: 1. Abnormal cardiac enzymes which most likely indicative of a non-ST segment elevation myocardial in farction or type 2 myocardial infarction, but most likely due to possibly demand ischemia. It appear s the patient was sitting in his chair throughout the evening since his son left him, so more or like 18 hours just sitting in the chair which may have some, but we will continue to monitor the cardiac enzymes. At this time, he is not a candidate for any cardiac catheterization and he may eventually n eed to undergo catheterization, but at this time, I would not advise in this patient has multiple med ical problems, severe peripheral vascular disease. 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 2. Mental status changes of uncertain etiology. He may have some underlying infection despite havin g a normal WBC. He does have a cough which appears to be rather coarse at times. 3. History of hyperlipidemia. We will continue his medications once he is more alert. He does have a history of chronic kidney disease also, but this has been stable and managed by loss control manager in past. 4. Type 2 diabetes. This also be monitored by the Hospitalist Service. 5. Peripheral vascular disease which we will continue to monitor at this time. 6. This gentleman with his mental status changes, it is unclear of the etiology. He may need to und ergo a neurological evaluation. We will be more than happy to continue to follow the patient with you. He is a DNR status.
[2018-04-20 05:32] LABS: #Lymphocytes 0.4 thou/uL (1.20-3.40); #Monocytes 0.7 thou/uL (0.11-0.59); #Neutrophils 5.9 thou/uL (1.40-6.50); %Eosinophils 0.1 % (0.0-10.0); %Lymphocytes 6.2 % (21.0-51.0); %Monocytes 9.4 % (0.0-10.0); %Neutrophils 84.3 % (42.0-75.0); Hemoglobin 10.9 g/dL (14.0-18.0); Mean Corpuscular HGB CONC 33.4 g/dL (32.0-36.0); Mean Platelet Volume 7.6 fL (7.4-10.4); Platelet Count 101 thou/uL (130-400); RBC Distribution Width 13.4 % (11.5-14.5)
[2018-04-20 05:41] LABS: Anion Gap 11 mmol/L (10-20); BUN (Urea Nitrogen) 40 mg/dL (8.4-25.7); Calc. Creatinine Clearance 38 mL/min (70-130); Calcium 8.8 mg/dL (7.8-10.44); Carbon Dioxide 23 mmol/L (23-31); Chloride 113 mmol/L (98-107); Cholesterol 123 mg/dl (< 200 Desired); Estimated GFR-MDRD 50; Glucose 167 mg/dL (83-110); HDL Cholesterol 41 mg/dL (>60 Neg Risk); LDL Cholesterol, Calculated 66 mg/dL; Sodium 143 mmol/L (136-145); Triglycerides 82 mg/dL (Less than 150)
[2018-04-20] MEDS ORDERED: Loperamide HCl 2 MG CAP PO PRN (06:43)
[2018-04-20] MEDS ORDERED: Sodium Chloride 0.65% Nasal 44 ML BOT EA NARE PRN (06:43)
[2018-04-20] MEDS ORDERED: Loratadine 10 MG TAB PO PRN (06:43)
[2018-04-20] MEDS ORDERED: Milk Of Magnesia 30 ML UDCUP PO PRN (06:43)
[2018-04-20] MEDS ORDERED: Eucerin (Mineral Oil/Petrolatum,White) 30 gm Jar TOP PRN (06:43)
[2018-04-20] MEDS ORDERED: hydrALAZINE 20 MG/ML VIAL SLOW IVP PRN (06:43)
[2018-04-20] MEDS ORDERED: Artificial Tears 18 DROP/0.9 ML EA EYE PRN (06:43)
[2018-04-20] MEDS ORDERED: Chloraseptic Spray 180 ml Bottle PO PRN (06:43)
[2018-04-20] MEDS ORDERED: Diabetic Tussin 200 MG/10 ML UDCUP PO PRN (06:43)
[2018-04-20] MEDS ORDERED: Mag-Al 1200 mg/1200 mg/30 ML UDCUP PO PRN (06:43)
[2018-04-20] MEDS: Enoxaparin Sodium 80 MG/0.8 ML SYRINGE SC SCH ×2 (07:51→21:20)
[2018-04-20] MEDS ORDERED: Famotidine/PF 20 mg/2ml Vial SLOW IVP SCH (09:00)
[2018-04-20] MEDS ORDERED: Prevnar 13-Val Conj/PF 0.5 ML SYRINGE IM ONE (09:00)
[2018-04-20] MEDS ORDERED: Enoxaparin Sodium 40 MG/0.4 ML SYRINGE SC SCH (09:00)
[2018-04-20] MEDS ORDERED: Aspirin 325 MG TAB PO SCH (09:00)
--- NOTE | 2018-04-20 09:44 | PDOC.PN ---
- Subjective Encounter Start Date: 04/20/18 Encounter Start Time: 07:00 -: old records requested/rev he is alert but has gurgling sound in his throat, he follows command, son is bedside - Objective Resuscitation Status: Resuscitation Status DNR:Do Not Resuscitate MAR Reviewed: Yes Vital Signs & Weight: Vital Signs (12 hours) Temp Pulse Resp BP Pulse Ox 04/20/18 07:58 98.1 F 86 16 155/69 H 90 L 04/20/18 04:43 97.4 F L 86 20 142/63 H 90 L 04/19/18 23:55 97.4 F L 81 22 H 134/63 93 L Weight Admit Weight 117 lb 9.6 oz Weight 158 lb 0.085 oz I&O: 04/19/18 04/20/18 04/21/18 06:59 06:59 06:59 Intake Total 1650 Output Total 1450 Balance 200 Result Diagrams: 04/20/18 04:38 04/20/18 04:38 Additional Labs: Accuchecks 04/20/18 04/19/18 04/19/18 05:53 21:53 17:17 POC Glucose 156 H 194 H 179 H Radiology Reviewed by me: Yes (CT brain) EKG Reviewed by me: Yes Phys Exam - Physical Examination Constitutional: NAD HEENT: PERRLA, sclera anicteric dry MM Neck: no nodes, no JVD, supple, full ROM gurgling sound in throat Respiratory: no wheezing, no rales, no rhonchi Cardiovascular: irregular SM+ Gastrointestinal: soft, non-tender, no distention, positive bowel sounds Musculoskeletal: no edema, pulses present Neurological: non-focal, normal sensation, moves all 4 limbs Lymphatic: no nodes Psychiatric: normal affect Skin: no rash, normal turgor Dx/Plan (1) Acute kidney failure Status: Acute Comment: improving (2) Encephalopathy acute Code(s): G93.40 - ENCEPHALOPATHY, UNSPECIFIED Status: Acute (3) Type [address] elevation Code(s): I21.A1 - MYOCARDIAL INFARCTION TYPE 2 Status: Acute (4) BPH (benign prostatic hyperplasia) Code(s): N40.0 - BENIGN PROSTATIC HYPERPLASIA WITHOUT LOWER URINRY TRACT SYMP Status: Chronic (5) CAD (coronary artery disease) Code(s): I25.10 - ATHSCL HEART DISEASE OF [place] CORONARY ARTERY W/O ANG PCTRS Status: Chronic (6) DJD (degenerative joint disease) of cervical spine Code(s): M47.812 - SPONDYLOSIS W/O MYELOPATHY OR RADICULOPATHY, CERVICAL REGION Status: Chronic (7) Diabetes type 2, controlled Code(s): E11.9 - TYPE 2 DIABETES MELLITUS WITHOUT COMPLICATIONS Status: Chronic (8) Dyslipidemia Code(s): E78.5 - HYPERLIPIDEMIA, UNSPECIFIED Status: Chronic (9) GERD (gastroesophageal reflux disease) Code(s): K21.9 - GASTRO-ESOPHAGEAL REFLUX DISEASE WITHOUT ESOPHAGITIS Status: Chronic (10) Macrocytic anemia Code(s): D53.9 - NUTRITIONAL ANEMIA, UNSPECIFIED Status: Chronic (11) Moderate mitral regurgitation by prior echocardiography Code(s): I34.0 - NONRHEUMATIC MITRAL (VALVE) INSUFFICIENCY Status: Chronic (12) Moderate tricuspid regurgitation by prior echocardiogram Code(s): I07.1 - RHEUMATIC TRICUSPID INSUFFICIENCY Status: Chronic (13) Osteoarthritis Code(s): M19.90 - UNSPECIFIED OSTEOARTHRITIS, UNSPECIFIED SITE Status: Chronic (14) Paroxysmal atrial fibrillation Code(s): I48.0 - PAROXYSMAL ATRIAL FIBRILLATION Status: Chronic - Plan cont current plan of care, plan discussed w/ family, PT/OT, director of social media marketing, speech therapy * spoke with son bedside * will get MRI * neurology consulted * continue IVF * monitor renal function * will need SNU on discharge * selected home medication * medication reviewed as below * symptomatic treatment. Review of Systems - Review of Systems Other: not reliable due to his level of cognitive status - Medications/Allergies Allergies/Adverse Reactions: Allergies Allergy/AdvReac Type Severity Reaction Status Date / Time adhesive tape Allergy Uncoded 12/19/17 23:29 Medications: Current Medications Acetaminophen (Tylenol) 650 mg PO Q4H PRN PRN Reason: Headache/Fever or Pain Acetaminophen (Tylenol) 650 mg ID Q4H PRN PRN Reason: Headache/Fever or Pain Last Admin: 04/20/18 07:51 Dose: 650 mg Al Hydroxide/Mg Hydroxide (Maalox) 15 ml PO Q4H PRN PRN Reason: Heartburn or Indigestion Artificial Tears (Tears Naturale) 0 drop EA EYE PRN PRN PRN Reason: Dry Eyes Aspirin (Aspirin) 325 mg PO DAILY LASHANDA Atorvastatin Calcium (Lipitor) 40 mg PO DAILY [facility] Bisacodyl (Dulcolax) 10 mg PO DAILYPRN PRN PRN Reason: Constipation Bisacodyl (Dulcolax) 10 mg ID Q24H PRN PRN Reason: Constipation Dextrose/Water (Dextrose 50%) 25 gm SLOW IVP PRN PRN PRN Reason: Hypoglycemia Docusate Sodium (Colace) 100 mg PO BID [facility] Last Admin: 04/19/18 21:02 Dose: Not Given Enoxaparin Sodium (Lovenox) 70 mg SC 0900,2100 [facility] Last Admin: 04/20/18 07:51 Dose: 70 mg Famotidine (Pepcid) 20 mg SLOW IVP DAILY [facility] Folic Acid (Folvite) 1 mg PO DAILY [facility] Glucagon (Glucagon) 1 mg IM PRN PRN PRN Reason: Hypoglycemia Guaifenesin (Robitussin Sf) 200 mg PO Q4H PRN PRN Reason: Cough Hydralazine HCl (Apresoline) 10 mg SLOW IVP Q4H PRN PRN Reason: Systolic BP > 180 Sodium Chloride (Normal Saline 0.9%) 1,000 mls @ 100 mls/hr IV .Q10H [facility] Last Admin: 04/19/18 23:06 Dose: 1,000 mls Dextrose/Water (D5w) 1,000 mls @ 0 mls/hr IV .Q0M PRN; As Directed PRN Reason: Hypoglycemia Insulin Glargine 5 units/ (Miscellaneous Medication) 0.05 mls @ 0 mls/hr SC QAM [facility] Insulin Human Lispro (Humalog) 0 units SC .MILD SLIDING SCALE PRN PRN Reason: Mild Correctional Scale Insulin Human Lispro (Humalog) 0 units SC .BEDTIME SLIDING SC PRN PRN Reason: Bedtime Correctional Scale Loperamide HCl (Imodium) 2 mg PO PRN PRN PRN Reason: Diarrhea/Loose Stools Loratadine (Claritin) 10 mg PO DAILYPRN PRN PRN Reason: Sinus Symptoms Magnesium Hydroxide (Milk Of Magnesium) 30 ml PO DAILYPRN PRN PRN Reason: Constipation Mineral Oil/White Petrolatum (Eucerin Cream) 0 gm TOP BIDPRN PRN PRN Reason: Dry Skin Nitroglycerin (Nitrostat) 0.4 mg PO Q5MIN PRN PRN Reason: Chest Pain Ondansetron HCl (Zofran Odt) 4 mg PO Q6H PRN PRN Reason: Nausea/Vomiting Ondansetron HCl (Zofran) 4 mg IVP Q6H PRN PRN Reason: Nausea/Vomiting Pantoprazole Sodium (Protonix) 40 mg PO 2100 LASHANDA Phenol (Chloraseptic [place] 180 Ml Bot) 0 ml PO PRN PRN PRN Reason: Sore Throat Sodium Chloride ([place] Nasal [place] 0.65%) 0 ml EA NARE QIDPRN PRN PRN Reason: Nasal Congestion Sodium Chloride (Flush - Normal Saline) 10 ml IVF Q12HR LASHANDA Sodium Chloride (Flush - Normal Saline) 10 ml IVF PRN PRN PRN Reason: Saline Flush Tamsulosin HCl (Flomax) 0.4 mg PO DAILY LASHANDA
[2018-04-20] MEDS: Docusate 100 MG CAP PO SCH ×2 (10:55→21:19)
--- NOTE | 2018-04-20 11:58 | PDOC.CTH ---
<Antonella Hanna - Last Filed: 04/20/18 12:11> Cardiology Progress Note - Subjective The pt seen and examined. No overnight events. No cardiac complaints. He moves more than yesterday. He passed swallowing test today. - Objective Vital Signs Temp Pulse Pulse Pulse Resp BP BP 04/20/18 08:38 84 82 148/67 H 170/70 H 04/20/18 08:00 98.1 F 86 16 04/20/18 07:58 98.1 F 86 16 04/20/18 04:43 97.4 F L 86 20 04/19/18 23:55 97.4 F L 81 22 H BP Pulse Ox 04/20/18 08:38 04/20/18 08:00 92 L 04/20/18 07:58 155/69 H 90 L 04/20/18 04:43 142/63 H 90 L 04/19/18 23:55 134/63 93 L Admit Weight 117 lb 9.6 oz Weight 158 lb 0.085 oz 04/19/18 04/20/18 04/21/18 06:59 06:59 06:59 Intake Total 1650 Output Total 1450 Balance 200 - Physical Examination General/Neuro: alert & oriented x3 Neck: no JVD present Lungs: CTA Heart: RRR Abdomen: soft Extremities: other: (2+ pitting edema to bilat ankles) - Telemetry Telemetry Rhythm: SR - Labs Result Diagrams: 04/20/18 04:38 04/20/18 04:38 Troponin/CKMB CK-MB (CK-2) 14.5 ng/mL (0-6.6) H* 04/19/18 10:11 Troponin I 4.139 ng/mL (< 0.028) H* 04/19/18 16:55 - Assessment/Plan 1. NSTEMI - possible demand ischemia. He is not a good candidate for any further cardiac workup. Cont. to monitor on tele. 2. CVA with Lt side weakness - neuro consult 3. CAD with Hx of CABG - stable on ASA and Statin. Start Metoprolol 25mg qd. Holding MAURO/ARE due to ALBINO. cont. to monitor on tele. 4. HTN - Start Metoprolol 25mg qd. 5. DM type 2 - managed by PCP 6. Hyperlipidemia - on Statin 7. PVD - possible AFRO if he is symptomatic 8. Dysphagia with hx of esophagus dilation - Followed by speech therapy 9. Hx of aflutter ablation - remains in SR. cont. to monitor 10. ALBINO - improving 11. Chronic Anemia - stable MAR reviewed Review of Systems - Review of Systems Constitutional: reports: no symptoms reported EENTM: reports: no symptoms reported Respiratory: reports: no symptoms reported Cardiac (ROS): reports: no symptoms reported ABD/GI: reports: no symptoms reported : reports: no symptoms reported Musculoskeletal: reports: no symptoms reported <Marcos Singer - Last Filed: 04/20/18 18:55> Cardiology Progress Note - Objective Vital Signs Temp Pulse Pulse Pulse Resp BP BP 04/20/18 15:51 98.3 F 68 20 04/20/18 12:00 97.9 F 80 20 04/20/18 08:38 84 82 148/67 H 170/70 H 04/20/18 08:00 98.1 F 86 16 04/20/18 07:58 98.1 F 86 16 BP Pulse Ox 04/20/18 15:51 138/64 94 L 04/20/18 12:00 134/61 92 L 04/20/18 08:38 04/20/18 08:00 92 L 04/20/18 07:58 155/69 H 90 L Admit Weight 117 lb 9.6 oz Weight 153 lb 11.2 oz 04/19/18 04/20/18 04/21/18 06:59 06:59 06:59 Intake Total 1650 Output Total 1450 Balance 200 - Labs Result Diagrams: 04/20/18 04:38 04/20/18 04:38 Troponin/CKMB CK-MB (CK-2) 14.5 ng/mL (0-6.6) H* 04/19/18 10:11 Troponin I 4.139 ng/mL (< 0.028) H* 04/19/18 16:55 - Assessment/Plan Pt. seen and eval. Speech is difficult to understand. MRI does not indicate CVA. The left sided weakness appears to be resolved. No etiology of the mental status changes yet. I agree with the remainder of the A/P by the OYSTER BUYER. Chest clear. RRR.
[2018-04-20 12:24] VITALS: BMI 21.4
[2018-04-20] MEDS: Insulin Glargine 5 UNITS in Pre-Filled Syringe 1 EACH SC SCH (13:39)
[2018-04-20] MEDS: Atorvastatin Calcium 40 MG TAB PO SCH (13:54)
[2018-04-20] MEDS: Tamsulosin HCl 0.4 MG CAP PO SCH (13:54)
[2018-04-20] MEDS: Folic Acid 1 MG TAB PO SCH (13:54)
[2018-04-20] MEDS: Sodium Chloride 0.9% 1,000 ML IV SCH ×2 (13:55→21:46)
--- NOTE | 2018-04-20 15:42 | MRI ---
MRI OF BRAIN WITHOUT CONTRAST 04/20/18 HISTORY: Altered mental status. FINDINGS: Correlation is made with the previous day's CT scan. There is cortical volume loss. The ventricular size is appropriate. There are foci of T2 prolongation in the periventricular white matter consistent with chronic small vessel ischemic disease. No restri cted diffusion is seen. No evidence of infarct, hemorrhage, midline shift or abnormal extra-axial flu id collections are noted. The visualized paranasal sinuses are well aerated. There is fluid in the ri ght mastoid air cells. IMPRESSION: No evidence of acute intracranial process. POS: C
[2018-04-20] MEDS: Acetaminophen 325 MG TAB PO PRN (16:15)
[2018-04-21] MEDS: Sodium Chloride 0.9% 1,000 ML IV SCH (02:17)
--- NOTE | 2018-04-21 02:53 | CON ---
DATE OF CONSULTATION: 04/20/2018 REFERRING PHYSICIAN: Richar Ugarte M.D. REASON FOR CONSULTATION: Left-sided weakness. HISTORY OF PRESENT ILLNESS: Mr. Hayes is a pleasant 87-year-old male who has been consul [facility] for evaluation of altered mental status and left-sided weakness. History is obtained from christiano walsh's medical chart as patient is unable to provide. Apparently, the patient lives at assisted living facility who usually ambulates and talks well. He had apparently gone to his primary care physician' s office to get some blood work done. After the blood work was done, the patient's family had droppe d him off back to his facility. He was supposed to call his family, but they have never received any phone call back. They called him the next day, he did not respond, so they went to go check on him. At that time, they found him sitting on the chair in the same clothes that he wore the day prior, u nresponsive. He was somewhat confused and unable to speak. He had not gotten up and had defecated h imself. For this reason, he was brought to the [facility]. On arrival here, he was n ot oriented and was somnolent and mildly hypotensive. His blood pressure was in the 90s. I am being asked to further evaluate for changes in mentation. PAST MEDICAL HISTORY: Significant for hypertension, dyslipidemia, diabetes, peripheral vascular dise ase, coronary artery disease, atrial fibrillation and TIA. PAST SURGICAL HISTORY: Significant for esophageal dilation, coronary artery bypass graft, right tota l knee replacement. SOCIAL HISTORY: Patient lives in assisted facility. He does not smoke cigarettes, drink alcohol or use illicit drugs. CURRENT MEDICATIONS: Please review MAR. ALLERGIES: ADHESIVE TAPE. FAMILY HISTORY: Noncontributory. REVIEW OF SYSTEMS: Unable to perform. PHYSICAL EXAMINATION: VITAL SIGNS: Blood pressure of 138/64, pulse of 68, temperature of 98.3, respirations of 20, O2 sats 94% on room air. GENERAL: Well-developed, well-nourished male in no apparent distress. RESPIRATORY: Clear to auscultation bilaterally. CARDIOVASCULAR: Regular rate and rhythm. NEUROLOGIC: Mental status: The patient is awake and alert, but disoriented to place, and time. He is able to follow some simple commands. Cranial nerves: Pupils are 3 mm and reactive. Visual field s are intact. Extraocular muscles are intact. No nystagmus. Face is symmetric. Motor exam showed normal tone and bulk with a 5/5 strength in both upper and lower extremities. Sensory is diminished in both upper and lower extremities. LABORATORY DATA: Labs are reviewed, which included CBC, CMP, urinalysis, urine drug screen, which is significant for hemoglobin 10.9, hematocrit of 32.6, platelet count of 101, BUN of 40, creatinine of 1.35, glucose of 174. Otherwise, negative. IMAGING STUDIES: MRI brain without contrast was reviewed, which showed no acute intracranial abnorma lity. IMPRESSION: Altered mental status, likely toxic metabolic encephalopathy. Mr. Hayes is a pleasant 87-year-old male who presented with changes in mentation and confusion. This is likely in dicative of toxic metabolic encephalopathy. At this time, we will recommend continuing current medic al management. If patient's mentation does not improve, then we may obtain EEG. Continue supportive care. Thank you for consultation.
[2018-04-21 04:41] LABS: #Lymphocytes 0.5 thou/uL (1.20-3.40); #Monocytes 0.5 thou/uL (0.11-0.59); #Neutrophils 3.8 thou/uL (1.40-6.50); %Eosinophils 0.4 % (0.0-10.0); %Lymphocytes 10.5 % (21.0-51.0); %Monocytes 9.8 % (0.0-10.0); %Neutrophils 79.3 % (42.0-75.0); Hemoglobin 10.7 g/dL (14.0-18.0); Mean Corpuscular HGB CONC 33.5 g/dL (32.0-36.0); Mean Corpuscular Hemoglobin 31.8 pg (27.0-31.0); Mean Platelet Volume 7.5 fL (7.4-10.4); Platelet Count 88 thou/uL (130-400); RBC Distribution Width 13.2 % (11.5-14.5); Red Blood Cell (RBC) Count 3.36 mill/uL (4.70-6.10); White Blood Cell (WBC) Count 4.8 thou/uL (4.8-10.8)
[2018-04-21 04:57] LABS: Anion Gap 12 mmol/L (10-20); BUN (Urea Nitrogen) 30 mg/dL (8.4-25.7); Calc. Creatinine Clearance 49 mL/min (70-130); Calcium 8.7 mg/dL (7.8-10.44); Carbon Dioxide 22 mmol/L (23-31); Chloride 114 mmol/L (98-107); Cholesterol 119 mg/dl (< 200 Desired); Estimated GFR-MDRD 68; Glucose 157 mg/dL (83-110); HDL Cholesterol 40 mg/dL (>60 Neg Risk); LDL Cholesterol, Calculated 59 mg/dL; Potassium 3.7 mmol/L (3.5-5.1); Sodium 144 mmol/L (136-145); Triglycerides 101 mg/dL (Less than 150)
[2018-04-21 05:03] LABS: Troponin I 3.008 ng/mL (< 0.028)
--- NOTE | 2018-04-21 09:27 | PDOC.CTH ---
Cardiology Progress Note - Subjective The pt seen and examined. No overnight events. No cardiac complaints. He was tolerated soft diet this AM. He is willing to start exercise with PT this AM. - Objective Vital Signs Temp Pulse Resp BP Pulse Ox 04/21/18 07:10 98.2 F 79 12 161/76 H 95 04/21/18 04:05 98.1 F 71 22 H 154/55 H 93 L 04/21/18 00:12 97.6 F 69 20 150/67 H 95 Admit Weight 117 lb 9.6 oz Weight 153 lb 11.2 oz 04/20/18 04/21/18 04/22/18 06:59 06:59 06:59 Intake Total 1650 Output Total 1450 Balance 200 - Physical Examination General/Neuro: alert & oriented x3 Neck: no JVD present Lungs: other: (diminished at bases) Heart: RRR Abdomen: soft Extremities: other: (No edema) - Telemetry Telemetry Rhythm: SR - Labs Result Diagrams: 04/21/18 04:31 04/21/18 04:31 Troponin/CKMB CK-MB (CK-2) 5.0 ng/mL (0-6.6) 04/21/18 04:31 Troponin I 3.008 ng/mL (< 0.028) H* 04/21/18 04:31 - Assessment/Plan 1. NSTEMI - possible demand ischemia. He is not a good candidate for any further cardiac workup. Cont. to monitor on tele. On BBlocker, ARE, ASA 81mg and Satin. 2. CVA with Lt side weakness - MRI does not indicate CVA. The left sided weakness appears to be resolved. No etiology of the mental status changes yet. 3. CAD with Hx of CABG - stable on ASA, Statin, Metoprolol 25mg qd. resume Losartan 50mg qd. cont. to monitor on tele. 4. HTN - Resume Losartan 50mg qd. Cont. to monitor 5. DM type 2 - managed by PCP 6. Hyperlipidemia - on Statin 7. PVD - possible AFRO if he is symptomatic 8. Dysphagia with hx of esophagus dilation - Improving and able to tolerate soft diet this AM. Followed by speech therapy 9. Hx of aflutter ablation - remains in SR. cont. to monitor 10. ALBINO - improving 11. Chronic Anemia - stable 12. Decreased Platelet level - Lovenox was d/una. Cont. to monitor MAR reviewed * From Cardiac standpoint, the pt is sable to tx to Rehab. The pt will f/u with Dr Singer' office after he is discharged from Rehab. Review of Systems - Review of Systems Constitutional: reports: no symptoms reported EENTM: reports: no symptoms reported Respiratory: reports: no symptoms reported Cardiac (ROS): reports: no symptoms reported ABD/GI: reports: no symptoms reported : reports: no symptoms reported Musculoskeletal: reports: no symptoms reported
[2018-04-21] MEDS: Losartan 25 MG TAB PO SCH (09:34)
[2018-04-21] MEDS: Atorvastatin Calcium 40 MG TAB PO SCH (09:35)
[2018-04-21] MEDS: Aspirin 81 mg Enteric Coated Tablet PO SCH (09:36)
[2018-04-21] MEDS: Folic Acid 1 MG TAB PO SCH (09:36)
[2018-04-21] MEDS: Insulin Glargine 5 UNITS in Pre-Filled Syringe 1 EACH SC SCH (09:37)
--- NOTE | 2018-04-21 10:50 | PDOC.PN ---
- Subjective Encounter Start Date: 04/21/18 Encounter Start Time: 08:40 Patient seen and examined for nstemi type-2, pt is more alert today, tolerating diet, has hoarsness of voice. No new complaints. No overnight events - Objective Resuscitation Status: Resuscitation Status DNR:Do Not Resuscitate MAR Reviewed: Yes Vital Signs & Weight: Vital Signs (12 hours) Temp Pulse Resp BP Pulse Ox 04/21/18 07:10 98.2 F 79 12 161/76 H 95 04/21/18 04:05 98.1 F 71 22 H 154/55 H 93 L 04/21/18 00:12 97.6 F 69 20 150/67 H 95 Weight Admit Weight 117 lb 9.6 oz Weight 153 lb 11.2 oz I&O: 04/20/18 04/21/18 04/22/18 06:59 06:59 06:59 Intake Total 1650 Output Total 1450 Balance 200 Result Diagrams: 04/21/18 04:31 04/21/18 04:31 Additional Labs: Accuchecks 04/21/18 04/20/18 04/20/18 05:08 21:41 16:33 POC Glucose 147 H 161 H 174 H 04/20/18 10:32 POC Glucose 189 H EKG Reviewed by me: Yes Phys Exam - Physical Examination Constitutional: NAD HEENT: PERRLA, moist MMs, sclera anicteric Neck: no JVD, supple Respiratory: no wheezing, no rales, no rhonchi Cardiovascular: RRR, no significant murmur, no rub Gastrointestinal: soft, non-tender, no distention, positive bowel sounds Musculoskeletal: no edema, pulses present Neurological: non-focal, normal sensation, moves all 4 limbs Lymphatic: no nodes Psychiatric: normal affect Skin: no rash, normal turgor Dx/Plan (1) Acute kidney failure Status: Resolved Comment: improving (2) Encephalopathy acute Code(s): G93.40 - ENCEPHALOPATHY, UNSPECIFIED Status: Resolved (3) Type [address] elevation Code(s): I21.A1 - MYOCARDIAL INFARCTION TYPE 2 Status: Acute Comment: demand ischemia (4) BPH (benign prostatic hyperplasia) Code(s): N40.0 - BENIGN PROSTATIC HYPERPLASIA WITHOUT LOWER URINRY TRACT SYMP Status: Chronic (5) CAD (coronary artery disease) Code(s): I25.10 - ATHSCL HEART DISEASE OF [place] CORONARY ARTERY W/O ANG PCTRS Status: Chronic (6) DJD (degenerative joint disease) of cervical spine Code(s): M47.812 - SPONDYLOSIS W/O MYELOPATHY OR RADICULOPATHY, CERVICAL REGION Status: Chronic (7) Diabetes type 2, controlled Code(s): E11.9 - TYPE 2 DIABETES MELLITUS WITHOUT COMPLICATIONS Status: Chronic (8) Dyslipidemia Code(s): E78.5 - HYPERLIPIDEMIA, UNSPECIFIED Status: Chronic (9) GERD (gastroesophageal reflux disease) Code(s): K21.9 - GASTRO-ESOPHAGEAL REFLUX DISEASE WITHOUT ESOPHAGITIS Status: Chronic (10) Macrocytic anemia Code(s): D53.9 - NUTRITIONAL ANEMIA, UNSPECIFIED Status: Chronic (11) Moderate mitral regurgitation by prior echocardiography Code(s): I34.0 - NONRHEUMATIC MITRAL (VALVE) INSUFFICIENCY Status: Chronic (12) Moderate tricuspid regurgitation by prior echocardiogram Code(s): I07.1 - RHEUMATIC TRICUSPID INSUFFICIENCY Status: Chronic (13) Osteoarthritis Code(s): M19.90 - UNSPECIFIED OSTEOARTHRITIS, UNSPECIFIED SITE Status: Chronic (14) Paroxysmal atrial fibrillation Code(s): I48.0 - PAROXYSMAL ATRIAL FIBRILLATION Status: Chronic - Plan cont current plan of care, plan discussed w/ family, PT/OT, social media senior associate, speech therapy * as per cardiology no further work up needed and stable for discharge * pt needs more PT and OT, so he will need placement * wrapper caser is working on his placement * paper work done * will discharge when SNU/rehab arranged * MRI is negative and neurology recommendation noted * discussed with family * medication reviewed as below * symptomatic treatment. Review of Systems - Review of Systems Constitutional: negative: fever, chills, sweats, weakness, malaise, other Eyes: negative: Pain, Vision Change, Conjunctivae Inflammation, Eyelid Inflammation, Redness, Other ENT: negative: Ear Pain, Ear Discharge, Nose Pain, Nose Discharge, Nose Congestion, Mouth Pain, Mouth Swelling, Throat Pain, Throat Swelling, Other Respiratory: negative: Cough, Dry, Shortness of Breath, Hemoptysis, SOB with Excertion, Pleuritic Pain, Sputum, Wheezing Cardiovascular: negative: chest pain, palpitations, orthopnea, paroxysmal nocturnal dyspnea, edema, light headedness, other Gastrointestinal: negative: Nausea, Vomiting, Abdominal Pain, Diarrhea, Constipation, Melena, Hematochezia, Other Genitourinary: negative: Dysuria, Frequency, Incontinence, Hematuria, Retention , Other Musculoskeletal: negative: Neck Pain, Shoulder Pain, Arm Pain, Back Pain, Hand Pain, Leg Pain, Foot Pain, Other Skin: negative: Rash, Lesions, Adams, Bruising, Other Neurological: negative: Weakness, Numbness, Incoordination, Change in Speech, Confusion, Seizures, Other - Medications/Allergies Allergies/Adverse Reactions: Allergies Allergy/AdvReac Type Severity Reaction Status Date / Time adhesive tape Allergy Uncoded 12/19/17 23:29 Medications: Current Medications Acetaminophen (Tylenol) 650 mg PO Q4H PRN PRN Reason: Headache/Fever or Pain Last Admin: 04/20/18 16:15 Dose: 650 mg Acetaminophen (Tylenol) 650 mg [place] Q4H PRN PRN Reason: Headache/Fever or Pain Last Admin: 04/20/18 07:51 Dose: 650 mg Al Hydroxide/Mg Hydroxide (Maalox) 15 ml PO Q4H PRN PRN Reason: Heartburn or Indigestion Artificial Tears (Tears Naturale) 0 drop EA EYE PRN PRN PRN Reason: Dry Eyes Aspirin (Ecotrin) 81 mg PO DAILY [facility] Last Admin: 04/21/18 09:36 Dose: 81 mg Atorvastatin Calcium (Lipitor) 40 mg PO DAILY [facility] Last Admin: 04/21/18 09:35 Dose: 40 mg Bisacodyl (Dulcolax) 10 mg PO DAILYPRN PRN PRN Reason: Constipation Bisacodyl (Dulcolax) 10 mg [place] Q24H PRN PRN Reason: Constipation Dextrose/Water (Dextrose 50%) 25 gm SLOW IVP PRN PRN PRN Reason: Hypoglycemia Docusate Sodium (Colace) 100 mg PO BID [facility] Last Admin: 04/20/18 21:19 Dose: 100 mg Folic Acid (Folvite) 1 mg PO DAILY [facility] Last Admin: 04/21/18 09:36 Dose: 1 mg Glucagon (Glucagon) 1 mg IM PRN PRN PRN Reason: Hypoglycemia Guaifenesin (Robitussin Sf) 200 mg PO Q4H PRN PRN Reason: Cough Hydralazine HCl (Apresoline) 10 mg SLOW IVP Q4H PRN PRN Reason: Systolic BP > 180 Dextrose/Water (D5w) 1,000 mls @ 0 mls/hr IV .Q0M PRN; As Directed PRN Reason: Hypoglycemia Insulin Glargine 5 units/ (Miscellaneous Medication) 0.05 mls @ 0 mls/hr SC QAM [facility] Last Admin: 04/21/18 09:37 Dose: 0.05 mls Insulin Human Lispro (Humalog) 0 units SC .MILD SLIDING SCALE PRN PRN Reason: Mild Correctional Scale Insulin Human Lispro (Humalog) 0 units SC .BEDTIME SLIDING SC PRN PRN Reason: Bedtime Correctional Scale Loperamide HCl (Imodium) 2 mg PO PRN PRN PRN Reason: Diarrhea/Loose Stools Loratadine (Claritin) 10 mg PO DAILYPRN PRN PRN Reason: Sinus Symptoms Losartan Potassium (Cozaar) 50 mg PO 1000 [facility] Last Admin: 04/21/18 09:34 Dose: 50 mg Magnesium Hydroxide (Milk Of Magnesium) 30 ml PO DAILYPRN PRN PRN Reason: Constipation Metoprolol Succinate (Toprol Xl) 25 mg PO DAILY [facility] Last Admin: 04/21/18 09:37 Dose: 25 mg Mineral Oil/White Petrolatum (Eucerin Cream) 0 gm TOP BIDPRN PRN PRN Reason: Dry Skin Nitroglycerin (Nitrostat) 0.4 mg PO Q5MIN PRN PRN Reason: Chest Pain Ondansetron HCl (Zofran Odt) 4 mg PO Q6H PRN PRN Reason: Nausea/Vomiting Ondansetron HCl (Zofran) 4 mg IVP Q6H PRN PRN Reason: Nausea/Vomiting Pantoprazole Sodium (Protonix) 40 mg PO 2100 [facility] Last Admin: 04/20/18 21:19 Dose: 40 mg Phenol (Chloraseptic [place] 180 Ml Bot) 0 ml PO PRN PRN PRN Reason: Sore Throat Sodium Chloride ([place] Nasal [place] 0.65%) 0 ml EA NARE QIDPRN PRN PRN Reason: Nasal Congestion Sodium Chloride (Flush - Normal Saline) 10 ml IVF Q12HR [facility] Last Admin: 04/20/18 21:22 Dose: Not Given Sodium Chloride (Flush - Normal Saline) 10 ml IVF PRN PRN PRN Reason: Saline Flush Tamsulosin HCl (Flomax) 0.4 mg PO DAILY [facility] Last Admin: 04/20/18 13:54 Dose: 0.4 mg
[2018-04-21] MEDS: Docusate 100 MG CAP PO SCH ×2 (11:16→20:25)
[2018-04-21] MEDS: Tamsulosin HCl 0.4 MG CAP PO SCH (12:03)
[2018-04-21] MEDS: HumaLOG 300 UNITS/3 ML VIAL SC PRN (12:04)
[2018-04-21] MEDS: Acetaminophen 325 MG TAB PO PRN (18:20)
[2018-04-22] MEDS: Aspirin 81 mg Enteric Coated Tablet PO SCH (08:04)
[2018-04-22] MEDS: Tamsulosin HCl 0.4 MG CAP PO SCH (08:05)
[2018-04-22] MEDS: Docusate 100 MG CAP PO SCH ×2 (08:05→21:13)
[2018-04-22] MEDS: Atorvastatin Calcium 40 MG TAB PO SCH (08:05)
[2018-04-22] MEDS: Folic Acid 1 MG TAB PO SCH (08:05)
[2018-04-22] MEDS: Insulin Glargine 5 UNITS in Pre-Filled Syringe 1 EACH SC SCH (08:13)
[2018-04-22] MEDS: Losartan 25 MG TAB PO SCH (08:20)
[2018-04-22] MEDS ORDERED: guaiFENesin ER 600 MG TAB PO SCH ×2 (10:00→10:30)
[2018-04-22] MEDS ORDERED: Amoxicillin/Potassium Clav 875 MG TAB PO SCH ×2 (10:00→10:30)
[2018-04-22] MEDS ORDERED: Ciprofloxacin 0.2% Otic 4 DROP CON R EAR SCH (10:45)
--- NOTE | 2018-04-22 13:28 | PDOC.PN ---
- Subjective Encounter Start Date: 04/22/18 Encounter Start Time: 13:27 Subjective: feels better.no AP/N/V/D/no CP/SOB -: C/P pain i Right ear and some cough - Objective Resuscitation Status: Resuscitation Status DNR:Do Not Resuscitate MAR Reviewed: Yes Vital Signs & Weight: Vital Signs (12 hours) Temp Pulse Pulse Pulse Resp BP BP 04/22/18 12:00 84 69 151/65 H 136/63 04/22/18 11:38 98 F 60 16 04/22/18 10:00 04/22/18 09:13 98.8 F 71 14 04/22/18 08:30 04/22/18 07:49 98.8 F 71 14 04/22/18 04:00 98.0 F 62 18 BP Pulse Ox 04/22/18 12:00 04/22/18 11:38 144/64 H 99 04/22/18 10:00 145/67 H 04/22/18 09:13 95 04/22/18 08:30 178/77 H 04/22/18 07:49 184/81 H 95 04/22/18 04:00 154/70 H 97 Weight Admit Weight 117 lb 9.6 oz Weight 153 lb 11.2 oz I&O: 04/21/18 04/22/18 04/23/18 06:59 06:59 06:59 Intake Total 1700 Output Total 100 Balance 1600 Result Diagrams: 04/21/18 04:31 04/21/18 04:31 Additional Labs: Accuchecks 04/22/18 04/21/18 04/21/18 05:47 20:54 17:05 POC Glucose 93 154 H 123 H 04/21/18 11:16 POC Glucose 156 H Microbiology 04/19/18 10:29 Urine Straight Catheter Urine Culture - Final NO GROWTH AT 48 HOURS 04/19/18 11:02 Venous blood - Right Hand Blood Culture - Preliminary NO GROWTH AT 48 HOURS 04/19/18 10:53 Venous blood - Right Hand Blood Culture - Preliminary NO GROWTH AT 48 HOURS Laboratory Tests 12/20/17 04/19/18 04/19/18 07:37 10:11 10:11 Creatinine 1.84 H Troponin I 0.044 H 3.961 H* Triglycerides Cholesterol LDL Cholesterol, Calc HDL Cholesterol Homocysteine TSH 3rd Generation 0604/19/18 04/19/18 10:11 13:09 16:55 Creatinine Troponin I 3.722 H* 4.139 H* Triglycerides Cholesterol LDL Cholesterol, Calc HDL Cholesterol Homocysteine TSH 3rd Generation 0.7878 04/20/18 04/21/18 04/21/18 04:38 04:31 04:31 Creatinine 1.35 H 1.03 Troponin I 3.008 H* Triglycerides 101 Cholesterol 119 LDL Cholesterol, Calc 59 HDL Cholesterol 40 Homocysteine TSH 3rd Generation 04/21/18 04:31 Creatinine Troponin I Triglycerides Cholesterol LDL Cholesterol, Calc HDL Cholesterol Homocysteine 14.14 TSH 3rd Generation labs reviewed Phys Exam - Physical Examination Constitutional: NAD HEENT: PERRLA, moist MMs, sclera anicteric, oral pharynx no lesions pain R ear on moving.no discharge.mild erythem apost pharynx Neck: no nodes, no JVD, supple, full ROM Respiratory: no wheezing, no rales, no rhonchi, clear to auscultation bilateral Cardiovascular: RRR, no significant murmur, no rub Gastrointestinal: soft, non-tender, no distention, positive bowel sounds Musculoskeletal: no edema, pulses present Neurological: non-focal, normal sensation, moves all 4 limbs Psychiatric: normal affect, A&O x 3 Skin: no rash Dx/Plan (1) Otitis media Code(s): H66.90 - OTITIS MEDIA, UNSPECIFIED, UNSPECIFIED EAR Status: Acute Qualifiers: Chronicity: acute Laterality: right (2) Type [address] elevation Code(s): I21.A1 - MYOCARDIAL INFARCTION TYPE 2 Status: Acute Comment: demand ischemia (3) Thrombocytopenia Code(s): D69.6 - THROMBOCYTOPENIA, UNSPECIFIED Status: Acute (4) BPH (benign prostatic hyperplasia) Code(s): N40.0 - BENIGN PROSTATIC HYPERPLASIA WITHOUT LOWER URINRY TRACT SYMP Status: Chronic (5) CAD (coronary artery disease) Code(s): I25.10 - ATHSCL HEART DISEASE OF [place] CORONARY ARTERY W/O ANG PCTRS Status: Chronic (6) Diabetes type 2, controlled Code(s): E11.9 - TYPE 2 DIABETES MELLITUS WITHOUT COMPLICATIONS Status: Chronic (7) Dyslipidemia Code(s): E78.5 - HYPERLIPIDEMIA, UNSPECIFIED Status: Chronic (8) GERD (gastroesophageal reflux disease) Code(s): K21.9 - GASTRO-ESOPHAGEAL REFLUX DISEASE WITHOUT ESOPHAGITIS Status: Chronic (9) Macrocytic anemia Code(s): D53.9 - NUTRITIONAL ANEMIA, UNSPECIFIED Status: Chronic (10) Moderate mitral regurgitation by prior echocardiography Code(s): I34.0 - NONRHEUMATIC MITRAL (VALVE) INSUFFICIENCY Status: Chronic (11) Moderate tricuspid regurgitation by prior echocardiogram Code(s): I07.1 - RHEUMATIC TRICUSPID INSUFFICIENCY Status: Chronic (12) Osteoarthritis Code(s): M19.90 - UNSPECIFIED OSTEOARTHRITIS, UNSPECIFIED SITE Status: Chronic (13) Paroxysmal atrial fibrillation Code(s): I48.0 - PAROXYSMAL ATRIAL FIBRILLATION Status: Chronic (14) Acute kidney failure Status: Resolved Comment: improving (15) Encephalopathy acute Code(s): G93.40 - ENCEPHALOPATHY, UNSPECIFIED Status: Resolved - Plan PT/OT, out of bed/ambulate, DVT proph w/SCDs Start PO Abx for Otitis.add otic drops as well. -: check CXr given cough. -: cont to monitor platelets.only on ASA. -: am labs -: paulo donohue in next 24 hrs if accepted.clinically at baseline.AAOX3 * . Review of Systems - Review of Systems Constitutional: negative: fever, chills, sweats, weakness, malaise, other ENT: negative: Ear Pain, Ear Discharge, Nose Pain, Nose Discharge, Nose Congestion, Mouth Pain, Mouth Swelling, Throat Pain, Throat Swelling, Other Respiratory: negative: Cough, Dry, Shortness of Breath, Hemoptysis, SOB with Excertion, Pleuritic Pain, Sputum, Wheezing Cardiovascular: negative: chest pain, palpitations, orthopnea, paroxysmal nocturnal dyspnea, edema, light headedness, other Gastrointestinal: negative: Nausea, Vomiting, Abdominal Pain, Diarrhea, Constipation, Melena, Hematochezia, Other Genitourinary: negative: Dysuria, Frequency, Incontinence, Hematuria, Retention , Other Musculoskeletal: negative: Neck Pain, Shoulder Pain, Arm Pain, Back Pain, Hand Pain, Leg Pain, Foot Pain, Other Skin: negative: Rash, Lesions, Adams, Bruising, Other Neurological: negative: Weakness, Numbness, Incoordination, Change in Speech, Confusion, Seizures, Other - Medications/Allergies Allergies/Adverse Reactions: Allergies Allergy/AdvReac Type Severity Reaction Status Date / Time adhesive tape Allergy Uncoded 12/19/17 23:29 Medications: Current Medications Acetaminophen (Tylenol) 650 mg PO Q4H PRN PRN Reason: Headache/Fever or Pain Last Admin: 04/21/18 18:20 Dose: 650 mg Acetaminophen (Tylenol) 650 mg [place] Q4H PRN PRN Reason: Headache/Fever or Pain Last Admin: 04/20/18 07:51 Dose: 650 mg Al Hydroxide/Mg Hydroxide (Maalox) 15 ml PO Q4H PRN PRN Reason: Heartburn or Indigestion Amoxicillin/Clavulanate Potassium (Augmentin) 875 mg PO Q12HR [facility] Artificial Tears (Tears Naturale) 0 drop EA EYE PRN PRN PRN Reason: Dry Eyes Aspirin (Ecotrin) 81 mg PO DAILY [facility] Last Admin: 04/22/18 08:04 Dose: 81 mg Atorvastatin Calcium (Lipitor) 40 mg PO DAILY [facility] Last Admin: 04/22/18 08:05 Dose: 40 mg Bisacodyl (Dulcolax) 10 mg PO DAILYPRN PRN PRN Reason: Constipation Bisacodyl (Dulcolax) 10 mg GA Q24H PRN PRN Reason: Constipation Ciprofloxacin (Cipro 0.2% Otic) 0 drop R EAR BID [facility] Dextrose/Water (Dextrose 50%) 25 gm SLOW IVP PRN PRN PRN Reason: Hypoglycemia Docusate Sodium (Colace) 100 mg PO BID [facility] Last Admin: 04/22/18 08:05 Dose: 100 mg Folic Acid (Folvite) 1 mg PO DAILY [facility] Last Admin: 04/22/18 08:05 Dose: 1 mg Glucagon (Glucagon) 1 mg IM PRN PRN PRN Reason: Hypoglycemia Guaifenesin (Robitussin Sf) 200 mg PO Q4H PRN PRN Reason: Cough Guaifenesin (Mucinex) 1,200 mg PO Q12HR [facility] Hydralazine HCl (Apresoline) 10 mg SLOW IVP Q4H PRN PRN Reason: Systolic BP > 180 Dextrose/Water (D5w) 1,000 mls @ 0 mls/hr IV .Q0M PRN; As Directed PRN Reason: Hypoglycemia Insulin Glargine 5 units/ (Miscellaneous Medication) 0.05 mls @ 0 mls/hr SC QAM [facility] Last Admin: 04/22/18 08:13 Dose: 0.05 mls Insulin Human Lispro (Humalog) 0 units SC .MILD SLIDING SCALE PRN PRN Reason: Mild Correctional Scale Last Admin: 04/21/18 12:04 Dose: 2 unit Insulin Human Lispro (Humalog) 0 units SC .BEDTIME SLIDING SC PRN PRN Reason: Bedtime Correctional Scale Loperamide HCl (Imodium) 2 mg PO PRN PRN PRN Reason: Diarrhea/Loose Stools Loratadine (Claritin) 10 mg PO DAILYPRN PRN PRN Reason: Sinus Symptoms Losartan Potassium (Cozaar) 50 mg PO 1000 [facility] Last Admin: 04/22/18 08:20 Dose: 50 mg Magnesium Hydroxide (Milk Of Magnesium) 30 ml PO DAILYPRN PRN PRN Reason: Constipation Metoprolol Succinate (Toprol Xl) 25 mg PO DAILY [facility] Last Admin: 04/22/18 08:06 Dose: 25 mg Mineral Oil/White Petrolatum (Eucerin Cream) 0 gm TOP BIDPRN PRN PRN Reason: Dry Skin Nitroglycerin (Nitrostat) 0.4 mg PO Q5MIN PRN PRN Reason: Chest Pain Ondansetron HCl (Zofran Odt) 4 mg PO Q6H PRN PRN Reason: Nausea/Vomiting Ondansetron HCl (Zofran) 4 mg IVP Q6H PRN PRN Reason: Nausea/Vomiting Pantoprazole Sodium (Protonix) 40 mg PO 2100 [facility] Last Admin: 04/21/18 20:25 Dose: 40 mg Phenol (Chloraseptic [place] 180 Ml Bot) 0 ml PO PRN PRN PRN Reason: Sore Throat Sodium Chloride ([place] Nasal [place] 0.65%) 0 ml EA NARE QIDPRN PRN PRN Reason: Nasal Congestion Sodium Chloride (Flush - Normal Saline) 10 ml IVF Q12HR [facility] Last Admin: 04/22/18 08:14 Dose: 10 ml Sodium Chloride (Flush - Normal Saline) 10 ml IVF PRN PRN PRN Reason: Saline Flush Tamsulosin HCl (Flomax) 0.4 mg PO DAILY [facility] Last Admin: 04/22/18 08:05 Dose: 0.4 mg
--- NOTE | 2018-04-22 14:24 | RAD ---
PORTABLE CHEST: Date: 04/22/18 HISTORY: Pneumonia. Cough. COMPARISON: 04/19/18. FINDINGS: There is new patchy infiltrate in the right lower lung. Upper lung zones remain clear and unchanged. Heart and mediastinum unremarkable with postop sternotomy changes. IMPRESSION: Evidence of new infiltrate in the right lower lung. POS: [facility]
[2018-04-22] MEDS: HumaLOG 300 UNITS/3 ML VIAL SC PRN (16:52)
[2018-04-22] MEDS: Ciprofloxacin 0.2% Otic 4 DROP CON R EAR SCH (21:11)
[2018-04-22] MEDS: Amoxicillin/Potassium Clav 875 MG TAB PO SCH (21:12)
[2018-04-22] MEDS: guaiFENesin ER 600 MG TAB PO SCH (21:12)
[2018-04-23] MEDS: Amoxicillin/Potassium Clav 875 MG TAB PO SCH ×2 (09:50→20:35)
[2018-04-23] MEDS: Atorvastatin Calcium 40 MG TAB PO SCH (09:52)
[2018-04-23] MEDS: Aspirin 81 mg Enteric Coated Tablet PO SCH (09:52)
[2018-04-23] MEDS: Folic Acid 1 MG TAB PO SCH (09:53)
[2018-04-23] MEDS: Docusate 100 MG CAP PO SCH ×2 (09:53→20:35)
[2018-04-23] MEDS: guaiFENesin ER 600 MG TAB PO SCH ×2 (09:54→20:36)
[2018-04-23] MEDS: Insulin Glargine 5 UNITS in Pre-Filled Syringe 1 EACH SC SCH (09:56)
[2018-04-23] MEDS: Tamsulosin HCl 0.4 MG CAP PO SCH (09:57)
[2018-04-23] MEDS: Losartan 25 MG TAB PO SCH (09:57)
[2018-04-23] MEDS: Ciprofloxacin 0.2% Otic 4 DROP CON R EAR SCH ×2 (10:57→21:17)
--- NOTE | 2018-04-23 14:05 | PDOC.PN ---
- Subjective Encounter Start Date: 04/23/18 Encounter Start Time: 14:03 Subjective: feels much better. -: reports taht ear ache has improved and cough is improving - Objective Resuscitation Status: Resuscitation Status DNR:Do Not Resuscitate MAR Reviewed: Yes Vital Signs & Weight: Vital Signs (12 hours) Temp Pulse Resp BP Pulse Ox 04/23/18 11:57 98.2 F 89 20 129/61 96 04/23/18 08:00 98.2 F 89 20 135/61 94 L 04/23/18 04:00 98.6 F 69 18 132/62 94 L Weight Admit Weight 117 lb 9.6 oz Weight 153 lb 11.2 oz I&O: 04/22/18 04/23/18 04/24/18 06:59 06:59 06:59 Intake Total 1700 840 Output Total 100 200 Balance 1600 640 Result Diagrams: 04/21/18 04:31 04/21/18 04:31 Additional Labs: Accuchecks 04/23/18 04/23/18 04/22/18 10:28 05:58 20:24 POC Glucose 190 H 142 H 193 H 04/22/18 04/22/18 16:49 10:41 POC Glucose 186 H 153 H Microbiology 04/19/18 10:29 Urine Straight Catheter Urine Culture - Final NO GROWTH AT 48 HOURS 04/19/18 11:02 Venous blood - Right Hand Blood Culture - Preliminary NO GROWTH AT 48 HOURS 04/19/18 10:53 Venous blood - Right Hand Blood Culture - Preliminary NO GROWTH AT 48 HOURS Laboratory Tests 04/19/18 04/19/18 04/19/18 10:11 13:09 16:55 Troponin I 3.961 H* 3.722 H* 4.139 H* 04/21/18 04:31 Troponin I 3.008 H* labs reviewed Radiology Reviewed by me: Yes (CXR- R lung PNA) Phys Exam - Physical Examination Constitutional: NAD HEENT: PERRLA, moist MMs, sclera anicteric, oral pharynx no lesions Neck: no nodes, no JVD, supple, full ROM Respiratory: no wheezing, no rales, no rhonchi, clear to auscultation bilateral Cardiovascular: RRR, no significant murmur, no rub Gastrointestinal: soft, non-tender, no distention, positive bowel sounds Musculoskeletal: no edema, pulses present Neurological: non-focal, normal sensation, moves all 4 limbs Psychiatric: normal affect, A&O x 3 Skin: no rash, normal turgor, cap refill <2 seconds Dx/Plan (1) PNA (pneumonia) Code(s): J18.9 - PNEUMONIA, UNSPECIFIED ORGANISM Status: Acute Qualifiers: Laterality: right Lung location: lower lobe of lung (2) Otitis media Code(s): H66.90 - OTITIS MEDIA, UNSPECIFIED, UNSPECIFIED EAR Status: Acute Qualifiers: Chronicity: acute Laterality: right (3) Type [address] elevation Code(s): I21.A1 - MYOCARDIAL INFARCTION TYPE 2 Status: Acute Comment: demand ischemia (4) Thrombocytopenia Code(s): D69.6 - THROMBOCYTOPENIA, UNSPECIFIED Status: Acute (5) BPH (benign prostatic hyperplasia) Code(s): N40.0 - BENIGN PROSTATIC HYPERPLASIA WITHOUT LOWER URINRY TRACT SYMP Status: Chronic (6) CAD (coronary artery disease) Code(s): I25.10 - ATHSCL HEART DISEASE OF [place] CORONARY ARTERY W/O ANG PCTRS Status: Chronic (7) Diabetes type 2, controlled Code(s): E11.9 - TYPE 2 DIABETES MELLITUS WITHOUT COMPLICATIONS Status: Chronic (8) Dyslipidemia Code(s): E78.5 - HYPERLIPIDEMIA, UNSPECIFIED Status: Chronic (9) GERD (gastroesophageal reflux disease) Code(s): K21.9 - GASTRO-ESOPHAGEAL REFLUX DISEASE WITHOUT ESOPHAGITIS Status: Chronic (10) Macrocytic anemia Code(s): D53.9 - NUTRITIONAL ANEMIA, UNSPECIFIED Status: Chronic (11) Moderate mitral regurgitation by prior echocardiography Code(s): I34.0 - NONRHEUMATIC MITRAL (VALVE) INSUFFICIENCY Status: Chronic (12) Moderate tricuspid regurgitation by prior echocardiogram Code(s): I07.1 - RHEUMATIC TRICUSPID INSUFFICIENCY Status: Chronic (13) Osteoarthritis Code(s): M19.90 - UNSPECIFIED OSTEOARTHRITIS, UNSPECIFIED SITE Status: Chronic (14) Paroxysmal atrial fibrillation Code(s): I48.0 - PAROXYSMAL ATRIAL FIBRILLATION Status: Chronic (15) Acute kidney failure Status: Resolved Comment: improving (16) Encephalopathy acute Code(s): G93.40 - ENCEPHALOPATHY, UNSPECIFIED Status: Resolved - Plan continue antibiotics, PT/OT, incentive spirometry, out of bed/ambulate, DVT proph w/SCDs add IV ABx for PNA. add IS .clinically stable. -: cont Po augmentin for otitis.improving -: mentation Normal.AAOX3. -: paulo KENDALL to Rehab tomorrow . -: home meds as below * . Review of Systems - Review of Systems Constitutional: negative: fever, chills, sweats, weakness, malaise, other ENT: Ear Pain. negative: Ear Discharge, Nose Pain, Nose Discharge, Nose Congestion, Mouth Pain, Mouth Swelling, Throat Pain, Throat Swelling, Other Respiratory: Cough. negative: Dry, Shortness of Breath, Hemoptysis, SOB with Excertion, Pleuritic Pain, Sputum, Wheezing Cardiovascular: negative: chest pain, palpitations, orthopnea, paroxysmal nocturnal dyspnea, edema, light headedness, other Gastrointestinal: negative: Nausea, Vomiting, Abdominal Pain, Diarrhea, Constipation, Melena, Hematochezia, Other Genitourinary: negative: Dysuria, Frequency, Incontinence, Hematuria, Retention , Other Musculoskeletal: negative: Neck Pain, Shoulder Pain, Arm Pain, Back Pain, Hand Pain, Leg Pain, Foot Pain, Other Skin: negative: Rash, Lesions, Adams, Bruising, Other Neurological: negative: Weakness, Numbness, Incoordination, Change in Speech, Confusion, Seizures, Other - Medications/Allergies Allergies/Adverse Reactions: Allergies Allergy/AdvReac Type Severity Reaction Status Date / Time adhesive tape Allergy Uncoded 12/19/17 23:29 Medications: Current Medications Acetaminophen (Tylenol) 650 mg PO Q4H PRN PRN Reason: Headache/Fever or Pain Last Admin: 04/21/18 18:20 Dose: 650 mg Acetaminophen (Tylenol) 650 mg OK Q4H PRN PRN Reason: Headache/Fever or Pain Last Admin: 04/20/18 07:51 Dose: 650 mg Al Hydroxide/Mg Hydroxide (Maalox) 15 ml PO Q4H PRN PRN Reason: Heartburn or Indigestion Amoxicillin/Clavulanate Potassium (Augmentin) 875 mg PO Q12HR [facility] Last Admin: 04/23/18 09:50 Dose: 875 mg Artificial Tears (Tears Naturale) 0 drop EA EYE PRN PRN PRN Reason: Dry Eyes Aspirin (Ecotrin) 81 mg PO DAILY [facility] Last Admin: 07/01/18 09:52 Dose: 81 mg Atorvastatin Calcium (Lipitor) 40 mg PO DAILY [facility] Last Admin: 04/23/18 09:52 Dose: 40 mg Bisacodyl (Dulcolax) 10 mg PO DAILYPRN PRN PRN Reason: Constipation Bisacodyl (Dulcolax) 10 mg OK Q24H PRN PRN Reason: Constipation Ciprofloxacin (Cipro 0.2% Otic) 0 drop R EAR BID [facility] Last Admin: 04/23/18 10:57 Dose: 4 drop Dextrose/Water (Dextrose 50%) 25 gm SLOW IVP PRN PRN PRN Reason: Hypoglycemia Docusate Sodium (Colace) 100 mg PO BID [facility] Last Admin: 04/23/18 09:53 Dose: 100 mg Folic Acid (Folvite) 1 mg PO DAILY [facility] Last Admin: 04/23/18 09:53 Dose: 1 mg Glucagon (Glucagon) 1 mg IM PRN PRN PRN Reason: Hypoglycemia Guaifenesin (Robitussin Sf) 200 mg PO Q4H PRN PRN Reason: Cough Guaifenesin (Mucinex) 1,200 mg PO Q12HR [facility] Last Admin: 04/23/18 09:54 Dose: 1,200 mg Hydralazine HCl (Apresoline) 10 mg SLOW IVP Q4H PRN PRN Reason: Systolic BP > 180 Dextrose/Water (D5w) 1,000 mls @ 0 mls/hr IV .Q0M PRN; As Directed PRN Reason: Hypoglycemia Insulin Glargine 5 units/ (Miscellaneous Medication) 0.05 mls @ 0 mls/hr SC QAM [facility] Last Admin: 04/23/18 09:56 Dose: 0.05 mls Levofloxacin 500 mg/ Device 100 mls @ 100 mls/hr IVPB 0800 [facility] Last Admin: 04/23/18 09:49 Dose: 100 mls Insulin Human Lispro (Humalog) 0 units SC .MILD SLIDING SCALE PRN PRN Reason: Mild Correctional Scale Last Admin: 04/22/18 16:52 Dose: 2 unit Insulin Human Lispro (Humalog) 0 units SC .BEDTIME SLIDING SC PRN PRN Reason: Bedtime Correctional Scale Loperamide HCl (Imodium) 2 mg PO PRN PRN PRN Reason: Diarrhea/Loose Stools Loratadine (Claritin) 10 mg PO DAILYPRN PRN PRN Reason: Sinus Symptoms Losartan Potassium (Cozaar) 50 mg PO 1000 [facility] Last Admin: 04/23/18 09:57 Dose: 50 mg Magnesium Hydroxide (Milk Of Magnesium) 30 ml PO DAILYPRN PRN PRN Reason: Constipation Metoprolol Succinate (Toprol Xl) 25 mg PO DAILY [facility] Last Admin: 04/23/18 09:57 Dose: 25 mg Mineral Oil/White Petrolatum (Eucerin Cream) 0 gm TOP BIDPRN PRN PRN Reason: Dry Skin Nitroglycerin (Nitrostat) 0.4 mg PO Q5MIN PRN PRN Reason: Chest Pain Ondansetron HCl (Zofran Odt) 4 mg PO Q6H PRN PRN Reason: Nausea/Vomiting Ondansetron HCl (Zofran) 4 mg IVP Q6H PRN PRN Reason: Nausea/Vomiting Pantoprazole Sodium (Protonix) 40 mg PO 2100 [facility] Last Admin: 04/22/18 21:11 Dose: 40 mg Phenol (Chloraseptic [place] 180 Ml Bot) 0 ml PO PRN PRN PRN Reason: Sore Throat Sodium Chloride ([place] Nasal [place] 0.65%) 0 ml EA NARE QIDPRN PRN PRN Reason: Nasal Congestion Sodium Chloride (Flush - Normal Saline) 10 ml IVF Q12HR [facility] Last Admin: 04/23/18 09:57 Dose: 10 ml Sodium Chloride (Flush - Normal Saline) 10 ml IVF PRN PRN PRN Reason: Saline Flush Tamsulosin HCl (Flomax) 0.4 mg PO DAILY [facility] Last Admin: 04/23/18 09:57 Dose: 0.4 mg
[2018-04-24] MEDS: Insulin Glargine 5 UNITS in Pre-Filled Syringe 1 EACH SC SCH (10:03)
[2018-04-24] MEDS: Ciprofloxacin 0.2% Otic 4 DROP CON R EAR SCH (10:04)
[2018-04-24] MEDS: Losartan 25 MG TAB PO SCH (10:05)
[2018-04-24] MEDS: Amoxicillin/Potassium Clav 875 MG TAB PO SCH (10:05)
[2018-04-24] MEDS: Docusate 100 MG CAP PO SCH (10:06)
[2018-04-24] MEDS: Tamsulosin HCl 0.4 MG CAP PO SCH (10:06)
[2018-04-24] MEDS: Atorvastatin Calcium 40 MG TAB PO SCH (10:06)
[2018-04-24] MEDS: Aspirin 81 mg Enteric Coated Tablet PO SCH (10:06)
[2018-04-24] MEDS: guaiFENesin ER 600 MG TAB PO SCH (10:06)
[2018-04-24] MEDS: Folic Acid 1 MG TAB PO SCH (10:07)
[2018-04-24 12:00] VITALS: BP 136/63; TEMP 98.4
--- NOTE | 2018-04-24 13:32 | PDOC.CTH ---
Cardiology Progress Note - Subjective The pt seen and examined. No overnight events. No cardiac complaints. He can screw remover his Lt extremities very well today. - Objective Vital Signs Temp Pulse Pulse Resp BP BP Pulse Ox 04/24/18 11:28 98.4 F 91 18 136/63 94 L 04/24/18 08:48 99 F 95 24 H 92 L 04/24/18 08:37 78 153/70 H 04/24/18 07:42 99 F 95 24 H 163/75 H 92 L 04/24/18 03:39 97.9 F 85 20 163/72 H 94 L Admit Weight 117 lb 9.6 oz Weight 115 lb 3.2 oz 04/23/18 04/24/18 04/25/18 06:59 06:59 06:59 Intake Total 840 500 Output Total 200 Balance 640 500 - Physical Examination General/Neuro: alert & oriented x3 Neck: no JVD present Lungs: CTA Heart: RRR Abdomen: soft Extremities: other: (No edema) - Telemetry Telemetry Rhythm: SR - Labs Result Diagrams: 04/21/18 04:31 04/21/18 04:31 Troponin/CKMB CK-MB (CK-2) 5.0 ng/mL (0-6.6) 04/21/18 04:31 Troponin I 3.008 ng/mL (< 0.028) H* 04/21/18 04:31 - Assessment/Plan 1. NSTEMI - possible demand ischemia. He is not a good candidate for any further cardiac workup. Cont. to monitor on tele. On BBlocker, ARE, ASA 81mg and Satin. 2. CVA with Lt side weakness - MRI does not indicate CVA. The left sided weakness appears to be resolved. No etiology of the mental status changes yet. 3. CAD with Hx of CABG - stable on ASA, Statin, Metoprolol 25mg qd. and Losartan 50mg qd. cont. to monitor on tele. 4. HTN - Cont. to monitor 5. DM type 2 - managed by PCP 6. Hyperlipidemia - on Statin 7. PVD - possible AFRO if he is symptomatic 8. Dysphagia with hx of esophagus dilation - Improving and able to tolerate soft diet this AM. Followed by speech therapy 9. Hx of aflutter ablation - remains in SR. cont. to monitor 10. ALBINO - improving 11. Chronic Anemia - stable 12. Decreased Platelet level - Katyx was d/una. Cont. to monitor MAR reviewed * From Cardiac standpoint, the pt is sable to tx to Rehab. The pt will f/u with Dr Singer' office after he is discharged from Rehab. Review of Systems - Review of Systems Constitutional: reports: no symptoms reported EENTM: reports: no symptoms reported Respiratory: reports: no symptoms reported Cardiac (ROS): reports: no symptoms reported ABD/GI: reports: no symptoms reported : reports: no symptoms reported Musculoskeletal: reports: no symptoms reported
--- NOTE | 2018-04-24 21:36 | DIS ---
DATE OF ADMISSION: 04/19/2018 DATE OF DISCHARGE: 04/24/2018 DISCHARGE DISPOSITION: [facility]. DISCHARGE DIAGNOSES: 1. Left lung pneumonia. 2. Otitis media right side. 3. Non-ST elevation myocardial infarction, type 2. 4. Thrombocytopenia. 5. Benign prostatic hypertrophy. 6. Coronary artery disease. 7. Diabetes. 8. Dyslipidemia. 9. Gastroesophageal reflux disease. 10. Microcytic anemia. 11. Paroxysmal atrial fibrillation. 12. Acute encephalopathy, resolved. 13. Acute kidney failure, resolved. 14. Osteoarthritis. DISCHARGE MEDICATIONS: As follows, Flomax 0.4 mg daily, Januvia 100 mg daily, aspirin 81 mg daily, N ovoLog as needed sliding scale, omeprazole 40 mg daily, Lantus 10-14 units in the morning, losartan 1 00 mg daily, Lipitor 40 mg daily, Clarinex 5 mg daily, Zofran as needed, Cozaar 50 mg daily, levoflox acin 500 mg p.o. daily for 7 days, folic acid 1 mg daily, B12 of 1000 mcg daily, Augmentin 875 mg p.o . q.12 hours 5 more days, Maalox as needed, Tylenol as needed. INHOUSE CONSULTATIONS: 1. Cardiology, Dr. Singer. 2. Neurology, Dr. Martine Barlow. PROCEDURES DONE IN THE HOSPITAL: Include, 1. A CT scan of the brain upon presentation, which showed stable findings with chronic small vessel ischemic changes and cerebral and cerebellar volume loss without any acute infarction, hemorrhage, ma ss or midline shift. 2. MRI of the brain which is also negative for any acute processes. PRIMARY CARE PHYSICIAN: Dr. Lior Salas. Accepting physician at [facility] is Dr. Tirado. HISTORY OF PRESENTING ILLNESS: Mr. Hayes is a very pleasant 87-year-old male with past medical his tory of TIA, coronary artery disease status post CABG and paroxysmal atrial fibrillation as well as d iabetes, dyslipidemia, who presented to the emergency room, brought in by his family for complaints o f altered mental status. His family failed to hear from him for almost a day and went to check on hi m in the assisted living facility where he lives, he was found sitting in the chair in the clothes fr om previous day. He was confused, unable to speak and had a stool and urine on himself. He was brou ght into the emergency room via EMS. He was found to be dehydrated and disoriented and mildly hypote nsive with a blood pressure in the 90s systolic. He was given IV fluids and initial workup revealed elevated troponin and elevated BUN of 44 and creatinine of 1.84 with a blood sugar of 241. Initial c ardiac enzyme was 3.722 with normal creatine kinase. Urinalysis is suggestive of infection. Chest x -ray, CT brain unremarkable. He was admitted to the hospital with a presumptive diagnosis of acute e ncephalopathy likely secondary to dehydration and non-ST elevation myocardial infarction. Please see admission history and physical for further details. He received Lovenox and aspirin in the emergenc y room. HOSPITAL COURSE: Cardiology was consulted with regards to elevated cardiac enzymes. Serial troponin s were trended and the highest was 4.139 and then it started to trend down and went to 3.008. Dr. Анна alas saw the patient and looking at the broad picture, it was thought that his cardiac enzyme elevation is most likely secondary to severe dehydration and renal insufficiency and not likely secondary to m yocardial infarction. It was thought secondary to be demand ischemia. She recommended continuation of medical management. Neurology saw the patient with regards to his acute encephalopathy. Their recommendation was that mo st likely he has toxic metabolic encephalopathy. MRI of the brain was obtained and was unremarkable. With the IV fluids, the patient perked up very quickly and was sewn back to his baseline, which is aw efren, alert, oriented x3. He was working with the physical therapist and walking in the hallways. He did have some complaint of right-sided ear pain and pain on manipulation of the pinna. He was sta rted on oral Augmentin for that. He then started to complain of some productive cough and a chest x- ray was checked which showed left-sided pneumonia developing. This was treated with IV levofloxacin in the hospital and the patient was clinically without any signs and symptoms by the time of discharg e. Antibiotics were changed to oral, which he will finish in the rehabilitation. He was accepted at [facility] rehab and will be discharged today. He was seen and examined prior to discharge. PHYSICAL EXAMINATION: VITAL SIGNS: Stable, respirations 18, saturating 94% on room air, temperature 98.4, heart rate 91, b lood pressure 136/63. GENERAL: No acute distress, awake, alert, oriented x3. CHEST: Clear to auscultation without any wheezing, rales or rhonchi. HEART: Rate and rhythm is regular without any murmur, rubs or gallops. DISCHARGE INSTRUCTIONS: He is instructed to follow up with his primary care physician after his reha bilitation to go over this hospitalization. He is currently hemodynamically stable and will be disch arged shortly. TOTAL TIME SPENT: 32 minutes.
--- NOTE | 2018-04-25 13:31 | PQF ---
[employer] Crystal Reports Winform ViewerROCAEL YAÑEZ RICHA MD [id number] [address] [place] [address] [id number] CLINICAL DOCUMENTATION CLARIFICATION FORM: POST DISCHARGE Addendum to original discharge summary date: ____ Late entry note date: __ Please exercise your independent, professional judgment in responding to the clarification form. Clinical indicators are provided on the bottom of this form for your review.PLEASE CLARIFY THE DIAGNOSIS OF ENCEPHALOPATHY IN THE RECORD. THANK YOU. CONFLICTING DOCUMENTATION IN THE RECORD INCLUDES: TOXIC METABOLIC AND ACUTE. Please check appropriate box(s): [ ] Encephalopathy: Type: [ X ] Acute [ ] Subacute [ ] Chronic Etiology: [ ] Hypertensive [X ] Metabolic [ ] Toxic [ ] Hepatic with Coma [ ] Hepatic w/o Coma [ ] Hypoxic [ ] Septic [ ] Drug induced: [ ] Unspecified [ ] in the setting of underlying dementia [ ] Other (please specify) [ ] Transient Alteration of Awareness [ ] Other diagnosis [ ] Unable to determine In addition, please specify: Present on Admission (POA): [ X] Yes [ ] No [ ] Unable to determine For continuity of documentation, please document condition throughout progress notes and discharge summary. Thank You. CLINICAL INDICATORS - SIGNS / SYMPTOMS / LABS Altered mental status / confusion improving once cause is corrected (acute) Metabolic / electrolyte abnormality Hypoxia for prolonged period Severe Hypertension IV meds that can cause altered mental state EEG [employer] [place] ALBINO DEHYDRATION Hypertension - uncontrolled Electrolyte imbalance [employer] Crystal [employer] Winform Viewer TREATMENTS: Neuro checks / neurology consult Cause is corrected encephalopathy resolves Antihypertensives (IV Nutritional supplements-TPN/TF Correction of electrolyte imbalances IV fluids (This form is maintained as a part of the permanent medical record) 2014 [employer]. All Rights Reserved Rose [email or web address] [phone] [email or web address]
== END 2018-04-24 13:13 | DRG 280 ==
LOC: ERS 09:58 → 2SE 12:30
PROVIDERS: ADMIT Emergency Medicine; ATTEND Emergency Medicine
DX: I21.A1 Myocardial infarction type 2 (principal); J18.9 Pneumonia, unspecified organism; G93.41 Metabolic encephalopathy; N17.9 Acute kidney failure, unspecified; I69.354 Hemiplegia and hemiparesis following cerebral infarction affecting left non-dominant side; H66.91 Otitis media, unspecified, right ear; D69.6 Thrombocytopenia, unspecified; N40.0 Benign prostatic hyperplasia without lower urinary tract symptoms; I25.10 Atherosclerotic heart disease of native coronary artery without angina pectoris; E78.5 Hyperlipidemia, unspecified; K21.9 Gastro-esophageal reflux disease without esophagitis; D50.9 Iron deficiency anemia, unspecified; I48.0 Paroxysmal atrial fibrillation; M19.90 Unspecified osteoarthritis, unspecified site; E86.0 Dehydration; E11.42 Type 2 diabetes mellitus with diabetic polyneuropathy; I69.991 Dysphagia following unspecified cerebrovascular disease; R13.10 Dysphagia, unspecified; I08.1 Rheumatic disorders of both mitral and tricuspid valves; M47.812 Spondylosis without myelopathy or radiculopathy, cervical region; I95.9 Hypotension, unspecified; Z79.4 Long term (current) use of insulin; Z79.01 Long term (current) use of anticoagulants; Z66 Do not resuscitate; Z95.1 Presence of aortocoronary bypass graft
CPT/HCPCS: 36415; 36416; 51702; 70450; 70551; 71045; 80048; 80053; 80061; 80306; 80307; 81003; 81015; 82010; 82330; 82553; 82803; 83090; 83690; 84443; 84484; 85025; 87040; 87086; 93005; 94760; 96360; 96361; 96372; A4216; G8978-GP-CM; G8979-GP-CK; G8987-GO-CM; G8988-GO-CK; G8996-GN-CL; G8997-GN-CI; J1650; J1956; S0028